=== PATIENT | female | born 1940 | race Hispanic/Latino ===

== ENCOUNTER → 2023-04-17 | Outpatient (CLI) | payer MEDICARE | END | disposition home or self-care (01) | LOC: SHCH 10:22 | PROVIDERS: ATTEND Internal Medicine Cardiovascular Disease | DX: I08.2 Rheumatic disorders of both aortic and tricuspid valves (principal); I10 Essential (primary) hypertension; I25.10 Atherosclerotic heart disease of native coronary artery without angina pectoris | CPT/HCPCS: 93306 ==

== ENCOUNTER → 2023-10-30 | Outpatient (CLI) | payer MEDICARE ==
[2023-10-30 16:17] LABS: BASOPHILS # (AUTO) 0.08 K/uL (0.00-0.20); BASOPHILS % (AUTO) 1.3 % (0.0-5.0); EOSINOPHILS # (AUTO) 0.48 K/uL (0.00-0.70); EOSINOPHILS % (AUTO) 7.9 % (0.0-8.0); HEMATOCRIT 44.7 % (36-48); IMMATURE GRANULOCYTE ABSOLUTE 0.02 K/uL (0-1); LYMPHOCYTES # (AUTO) 1.3 K/uL (1.0-4.8); LYMPHOCYTES % (AUTO) 21.3 % (21.0-51.0); MEAN CORPUSCULAR HEMOGLOBIN 27.4 pg (27.0-33.0); MEAN CORPUSCULAR HGB CONC 30.2 g/dL (32.0-36.0); MEAN CORPUSCULAR VOLUME 90.7 fL (79-99); MONOCYTES # (AUTO) 0.6 K/uL (0.1-1.0); MONOCYTES % (AUTO) 9.2 % (3.0-13.0); NEUTROPHILS # (AUTO) 3.6 K/uL (1.8-7.7); PLATELET COUNT (AUTO) 164 K/uL (130-400); RED BLOOD CELL COUNT(AUTO) 4.93 MIL/uL (4.00-5.50); RED CELL DISTRIBUTION WIDTH 17.8 % (11.0-15.5); WHITE BLOOD COUNT (AUTO) 6.1 K/uL (4.8-10.8)
[2023-10-30 16:37] LABS: B-TYPE NATRIURETIC PEPTIDE 764 pg/mL (0-100)
[2023-10-30 16:44] LABS: ALBUMIN 3.8 g/dL (3.5-5.0); BILIRUBIN,TOTAL 0.6 mg/dL (0.2-1.0); CREATININE 1.1 mg/dL (0.5-1.0); MAGNESIUM 1.6 mg/dL (1.80-2.40); POTASSIUM 4.1 mmol/L (3.5-5.1); TOTAL PROTEIN, SERUM 7.1 g/dL (6.0-8.3)
== END | disposition home or self-care (01) ==
LOC: LAB 11:30
PROVIDERS: ATTEND Physician Assistant
DX: I10 Essential (primary) hypertension (principal); E78.5 Hyperlipidemia, unspecified
CPT/HCPCS: 36415; 80053; 83735; 83880; 85025

== ENCOUNTER 2024-02-12 06:44 | Day surgery (SDC) | payer MEDICARE ==
[2024-02-07 15:04] VITALS: BP 126/74; PULSE 85; RESP 18; TEMP 98.2
[2024-02-07 15:11] LABS: BASOPHILS # (AUTO) 0.09 K/uL (0.00-0.20); BASOPHILS % (AUTO) 1.7 % (0.0-5.0); EOSINOPHILS % (AUTO) 3.8 % (0.0-8.0); HEMATOCRIT 39.3 % (36-48); IMMATURE GRANULOCYTE ABSOLUTE 0.02 K/uL (0-1); LYMPHOCYTES % (AUTO) 18.4 % (21.0-51.0); MEAN CORPUSCULAR HEMOGLOBIN 26.4 pg (27.0-33.0); MEAN CORPUSCULAR HGB CONC 30.5 g/dL (32.0-36.0); MEAN CORPUSCULAR VOLUME 86.4 fL (79-99); MONOCYTES # (AUTO) 0.6 K/uL (0.1-1.0); MONOCYTES % (AUTO) 11.9 % (3.0-13.0); NEUTROPHILS # (AUTO) 3.3 K/uL (1.8-7.7); NEUTROPHILS % (AUTO) 63.8 % (40.0-77.0); PLATELET COUNT (AUTO) 210 K/uL (130-400); RED BLOOD CELL COUNT(AUTO) 4.55 MIL/uL (4.00-5.50); RED CELL DISTRIBUTION WIDTH 16.3 % (11.0-15.5); WHITE BLOOD COUNT (AUTO) 5.2 K/uL (4.8-10.8)
[2024-02-07 15:21] LABS: POTASSIUM 4.5 mmol/L (3.5-5.1)
[2024-02-12] VITALS (20 sets, daily range): BP systolic 88–148; BP diastolic 47–97; PULSE 54–90; RESP 18; TEMP 97.7–98
[~2024-02-12] VITALS: Ht 162.6 cm; Wt 63.5 kg
[~2024-02-12 06:44] MED LIST: ACET-2521 PO; AEC81 PO; ATOR40TA71 PO; CETI10CA5 PO; CHOL-34 PO; DAPA10TA PO; DILT120C12 PO; DOCU100C33 PO; DULO20CA18 PO; FURO20TA6 PO; HYDR200T75 PO; ICOS1CAP PO; MAGN500T11 PO; MEMA5TAB16 PO; METO25TA3 PO; ONDA-243 PO; PROP225C24 PO; RIVA20TA PO; TRAM-543 PO
[2024-02-12] MEDS: 0.9%NACL 1000ML 1,000 ML IV SCH (08:53)
[2024-02-12] MEDS ORDERED: proPOFol 10 MG/ML 20ML VIAL IV ONE (11:39)
== END 2024-02-12 13:10 | disposition home or self-care (01) ==
LOC: DAH 06:44
PROVIDERS: ATTEND Internal Medicine Cardiovascular Disease
DX: I48.19 Other persistent atrial fibrillation (principal); I25.10 Atherosclerotic heart disease of native coronary artery without angina pectoris; E78.5 Hyperlipidemia, unspecified; E11.40 Type 2 diabetes mellitus with diabetic neuropathy, unspecified; J44.9 Chronic obstructive pulmonary disease, unspecified; I11.0 Hypertensive heart disease with heart failure; I50.32 Chronic diastolic (congestive) heart failure; M85.80 Other specified disorders of bone density and structure, unspecified site; M35.00 Sjogren syndrome, unspecified; F32.A Depression, unspecified; Z79.01 Long term (current) use of anticoagulants; Z79.82 Long term (current) use of aspirin; Z79.899 Other long term (current) drug therapy
CPT/HCPCS: 80048; 85025; 36415; 92960; 93005 ×2; J7030; J2704; A4215; A4222; A4221; A4663; A4216; A4606; A4223 ×3; J3490

== ENCOUNTER 2024-04-16 13:51 | Inpatient (IN) | payer MEDICARE ==
[~2024-04-16] VITALS: Ht 162.6 cm; Wt 57.2 kg
[2024-04-16] MEDS ORDERED: acetaMINOPHEN 325 MG TAB PO PRN (14:30)
[2024-04-16] MEDS ORDERED: DEXTROSE 50%-WATER 50 ML DISP.SYRIN IV PRN (14:30)
[2024-04-16] MEDS ORDERED: dilTIAZem 125MG+100 ML NS 125 ML IV PRN (14:30)
[2024-04-16] MEDS ORDERED: acetaMINOPHEN 650 MG SUPPOSITORY RC PRN (14:30)
[2024-04-16] MEDS ORDERED: GLUCAGON 1MG KIT 1 MG ML IM PRN (14:30)
[2024-04-16] MEDS ORDERED: PoTASSium chloRIDE 10MEQ/100ML 100 ML IV PRN ×2 (14:30)
[2024-04-16 14:38] LABS: BASOPHILS # (AUTO) 0.08 K/uL (0.00-0.20); BASOPHILS % (AUTO) 1.1 % (0.0-5.0); EOSINOPHILS # (AUTO) 0.16 K/uL (0.00-0.70); EOSINOPHILS % (AUTO) 2.2 % (0.0-8.0); HEMATOCRIT 33.6 % (36-48); IMMATURE GRANULOCYTE ABSOLUTE 0.03 K/uL (0-1); LYMPHOCYTES # (AUTO) 0.9 K/uL (1.0-4.8); LYMPHOCYTES % (AUTO) 12.4 % (21.0-51.0); MEAN CORPUSCULAR HEMOGLOBIN 22.2 pg (27.0-33.0); MEAN CORPUSCULAR HGB CONC 29.2 g/dL (32.0-36.0); MEAN CORPUSCULAR VOLUME 76.2 fL (79-99); MONOCYTES # (AUTO) 0.6 K/uL (0.1-1.0); MONOCYTES % (AUTO) 8.6 % (3.0-13.0); NEUTROPHILS # (AUTO) 5.4 K/uL (1.8-7.7); NEUTROPHILS % (AUTO) 75.3 % (40.0-77.0); PLATELET COUNT (AUTO) 188 K/uL (130-400); RED BLOOD CELL COUNT(AUTO) 4.41 MIL/uL (4.00-5.50); RED CELL DISTRIBUTION WIDTH 17.7 % (11.0-15.5); WHITE BLOOD COUNT (AUTO) 7.2 K/uL (4.8-10.8)
--- NOTE | 2024-04-16 14:43 | HP ---
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 History of atrial fibrillation on Chronic anticoagulation with Xarelto Acute hypoxic respiratory failure, POA Acute on chronic diastolic heart failure with the EF of 60% in 2018 History of pulmonary hypertension PAD Hyperglycemia in the presence of type 2 diabetes mellitus Hypomagnesemia Chronic microcytic hypochromic anemia, POA Thoracic aorta atherosclerosis Renal artery atherosclerosis 50% ostium lesion right renal per abdominal aortogram Raynaud's phenomenon Sjogren's syndrome HPI: This is a 89-year-old chronically ill female with a history of hypertension, type 2 diabetes mellitus, CAD status post PTCA stenting, diastolic heart failure, pulmonary hypertension, PAD, severe mitral stenosis, chronic atrial fibrillation on anticoagulation with prior history of cardioversion on 02/12/24 who was sent in via EMS from Cardiology office for concerns of severe dilated mitral valve. Per report patient was in AFib with RVR at the cardiology office with heart rate 100-150, hemodynamically stable. Patient directly admitted but due to no rooms on the PCCU floor patient arrived at the emergency department. She was received in the emergency department, EKG showed AFib with rate of 102. On heart rate monitor 68. Patient is hemodynamically stable. She reports shortness of breath with minimal exertion. Denies any chest pain palpitations nausea vomiting at this time. She does report fatigue and generalized body weakness. On laboratory WBCs are normal and normal neutrophils. H&H is 9.8/33.6 MCV 70 6.2 MCHC 29.2, with a platelet count of [id number]. Patient's consistent with microcytic hypochromic anemia. Chemistries sodium is normal 137, potassium is four BUN 24 glucose is 113 mg/dL lactic is normal at 2.1 with a total calcium of 8.4 magnesium is 1.50 covered per protocol. Liver enzymes are normal CK is normal at 76 sensitive troponin was 44.6 total protein 6.2 albumin 3.5 TSH is normal at 1.54 pending a BNP, pending COVID and influenza test. 2D echo ordered and pending. We will admit to PCCU and start Cardizem drip if patient converts back to AFib with RVR. PAST MEDICAL HX: Hypertension Diabetes mellitus type 2 Polyneuropathy CAD status post PTCA AFib with RVR on chronic anticoagulation Diastolic heart failure EF of 60% in 2018 Pulmonary hypertension PAD Thoracic aorta arteriosclerosis Right renal artery arteriosclerosis Raynaud's phenomena Sjogren's syndrome Dermatitis Internal and external hemorrhoids Microcytic anemia Depression Macular degeneration Open angle glaucoma Senile cataract Osteopenia Sjogren syndrome Chronic back pain Erosive esophagitis Hiatal hernia PAST SURGICAL HX: CAD status post PTCA Esophagogastroduodenoscopy Colonoscopy Diabetic retinal eye exam PTCA Abdominal aortogram Appendectomy Tonsillectomy SOCIAL HISTORY: No tobacco, ETOH, or illicit drug use Coded Allergies: No Known Drug Allergies (Unverified Allergy, Unknown, 02/07/24) REVIEW OF SYSTEMS: Const: No fever, or weight changes does report fatigue Eyes:[ no recent vision problems] ENT: [No congestion, ear pain, or sore throat] C/V: No chest pain yes for palpitations yes for edema Resp: [No cough, congestion, wheezing , yes for Shortness of breath] GI: [No abdominal pain, nausea, vomiting, constipation, or diarrhea] : [No incontinence of or dyuria] M/S: [No joint or pain swelling] Skin: [No rash] Neuro: [no headache, focal numbness, or weakness, dizziness or seizures] Psych: [no depression or anxiety] Heme: [no abnormal bruising or bleeding] Lymph: [no swollen glands] PHYSICAL EXAM: GENERAL: alert, weak, awake oriented x 3 HEENT: EOMI, Sclera non icteric, moist mucosa NECK: Supple, no JVD, trachea midline LUNGS: Diminished breath sounds bilaterally. No wheezes HEART: Irregular rate and rhythm. Normal S1 and S2, apical murmur, ABD: Abdomen soft, nontender. Bowel sounds present EXT: No clubbing + 1 pedal edema NEURO: Alert and oriented to person, follows commands Vital Signs (last 8hr) Date Time Temp Pulse Resp B/P (MAP) Pulse Ox O2 Delivery O2 Flow Rate FiO2 04/16/24 13:54 98.8 107 19 130/73 95 Nasal Cannula 2.0 LABS: Hematology Labs: Test 04/16/24 14:24 Range/Units White Blood Count 7.2 4.8-10.8 K/uL Red Blood Count 4.41 4.00-5.50 MIL/uL Hemoglobin 9.8 L 12.0-16.0 g/dL Hematocrit 33.6 L 36-48 % Mean Corpuscular Volume 76.2 L 79-99 fL Mean Corpuscular Hemoglobin 22.2 L 27.0-33.0 pg Mean Corpuscular Hemoglobin Concent 29.2 L 32.0-36.0 g/dL Red Cell Distribution Width 17.7 H 11.0-15.5 % Platelet Count 188 130-400 K/uL Mean Platelet Volume 10.0 7.5-10.5 fL Immature Granulocyte % (Auto) 0.4 0-1 % Neutrophils (%) (Auto) 75.3 40.0-77.0 % Lymphocytes (%) (Auto) 12.4 L 21.0-51.0 % Monocytes (%) (Auto) 8.6 3.0-13.0 % Eosinophils (%) (Auto) 2.2 0.0-8.0 % Basophils (%) (Auto) 1.1 0.0-5.0 % Neutrophils # (Auto) 5.4 1.8-7.7 K/uL Lymphocytes # (Auto) 0.9 L 1.0-4.8 K/uL Monocytes # (Auto) 0.6 0.1-1.0 K/uL Eosinophils # (Auto) 0.16 0.00-0.70 K/uL Basophils # (Auto) 0.08 0.00-0.20 K/uL Absolute Immature Granulocyte (auto 0.03 0-1 K/uL Nucleated Red Blood Cells 0.0 0.0-0.19 % Chemistry Labs: Test 04/16/24 14:24 Range/Units Lactic Acid Level 2.1 0.8-2.5 mmol/L DIAGNOSTICS / RADIOLOGY RESULTS: [ ] PLAN Monitor respiratory status closely Maintain O2 sats above 92% Continuous telemetry monitoring CBC, cardiac troponin, electrolytes, BUN and creatinine labs in a.m. Chest x-ray in the morning Strict I&O Hydralazine p.r.n. for hypertension Diurese with Lasix 2D echo Fluid restriction 1.5-L Beta bird ANABEL/ARB if kidney per minutes Aspirin Statin Sodium restriction Daily weight Avoid blood transfusions unless absolutely necessary with a hemoglobin less than 7 GI PPX Protonix Full-dose Lovenox Cardizem drip if patient converts to AFib with RVR NEURO: Minimize central acting medications as possible. Maintain fall precautions, adequate lighting during the day PULMONARY: Supplemental 02 as needed. Maintain aspiration precautions at all times Maintain O2 sats above 92% CARDIOVASCULAR: Follow hemodynamics. Vital signs per facility protocol Telemetry monitoring GI & NUTRITION: Continue with nutritional support. Continue stool softeners and laxatives as needed. Heart healthy KIDNEYS & ELECTROLYTES: Strict monitoring of intake, output and overall fluid balance. Avoid nephrotoxic medications to the extent possible. Medications to be dosed according to renal function. Monitor electrolytes and replace as needed ENDOCRINE: Maintain blood glucose between 100-180 at all times. Hypoglycemia protocol in place INFECTIOUS DISEASE: Trend temperature, WBC and procalcitonin level Follow cultures, deescalate antibiotics as soon as possible. Panculture if new onset fever ONCOLOGY/HEMATOLOGY/COAGULATION: Monitor for s/s of bleeding Monitor hemoglobin, coagulation studies as needed SKIN: Pressure ulcer prevention per facility protocol Specialty mattress ORTHO/REHAB: Continue PT/OT Prophylaxis: Continue GI and DVT prophylaxis Code Status: Full Resuscitation Disposition: TBD Other: Total patient care time exceeds 35 minutes excluding all procedures. TALI VILLARREAL [facility] Apr 16, 2024 14:43
[2024-04-16 15:06] LABS: ALBUMIN 3.5 g/dL (3.5-5.0); BILIRUBIN,TOTAL 0.7 mg/dL (0.2-1.0); TOTAL PROTEIN, SERUM 6.2 g/dL (6.0-8.3)
[2024-04-16 15:18] LABS: MAGNESIUM 1.5 mg/dL (1.80-2.40); PHOSPHORUS 3.9 mg/dL (2.5-4.9); THYROID STIMULATING HORMONE 1.54 uIU/mL (0.36-3.74)
--- NOTE | 2024-04-16 15:26 | EKG ---
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
[2024-04-16 15:45] LABS: B-TYPE NATRIURETIC PEPTIDE 1200 pg/mL (0-100)
[2024-04-16] MEDS ORDERED: hydrALAZine 20MG/ML VIAL IV PRN (16:00)
[2024-04-16 16:12] LABS: COVID19 (SARS ANTIGEN RAPID) PRESUMPTIVE NEGATIVE (NEGATIVE)
[2024-04-16 16:13] LABS: INFLUENZA TYPE A Negative For Type A (NEGATIVE); INFLUENZA TYPE B Negative For Type B (NEGATIVE)
--- NOTE | 2024-04-16 16:29 | HMCIMG ---
CHEST PA, LATERAL AND LORDOTIC HISTORY: Hypoxia COMPARISON: None FINDINGS: A frontal projection of the chest was obtained. There are bilateral pulmonary infiltrates suggestive of pulmonary vascular congestion with possible superimposed pneumonitis. The heart is borderline enlarged. Port inspiratory effort is seen. No evidence of aortic calcification is seen. IMPRESSION: 1. Bilateral pulmonary infiltrates are seen suggestive of pulmonary vascular congestion with possible superimposed pneumonitis.
[2024-04-16] MEDS: furoSEMIDE 20MG VIAL IV SCH (16:58)
[2024-04-16] MEDS: atorVAStatin 40 MG TABLET PO SCH (20:41)
[2024-04-16] MEDS: ENOXAPARIN SODIUM 60 MG/0.6 ML SQ SCH (20:43)
[2024-04-17] VITALS (10 sets, daily range): BP systolic 105–138; BP diastolic 60–82; PULSE 74–95; RESP 16–20; TEMP 88–98.3; O2SAT 94–98
[2024-04-17] MEDS: MAGNESIUM 2GM PREMIX 50ML 50 ML IV PRN (03:39)
[2024-04-17] MEDS ORDERED: HYDR200T75 PO (04:12)
[2024-04-17] MEDS ORDERED: PANT40TA54 PO (04:12)
[2024-04-17 05:10] LABS: BASOPHILS # (AUTO) 0.09 K/uL (0.00-0.20); BASOPHILS % (AUTO) 1.6 % (0.0-5.0); EOSINOPHILS # (AUTO) 0.23 K/uL (0.00-0.70); HEMATOCRIT 33.1 % (36-48); IMMATURE GRANULOCYTE ABSOLUTE 0.02 K/uL (0-1); LYMPHOCYTES % (AUTO) 16.7 % (21.0-51.0); MEAN CORPUSCULAR HEMOGLOBIN 21.7 pg (27.0-33.0); MEAN CORPUSCULAR HGB CONC 29.6 g/dL (32.0-36.0); MEAN CORPUSCULAR VOLUME 73.4 fL (79-99); MONOCYTES # (AUTO) 0.7 K/uL (0.1-1.0); MONOCYTES % (AUTO) 12.1 % (3.0-13.0); NEUTROPHILS # (AUTO) 3.7 K/uL (1.8-7.7); NEUTROPHILS % (AUTO) 65.2 % (40.0-77.0); PLATELET COUNT (AUTO) 201 K/uL (130-400); RED BLOOD CELL COUNT(AUTO) 4.51 MIL/uL (4.00-5.50); RED CELL DISTRIBUTION WIDTH 17.6 % (11.0-15.5); WHITE BLOOD COUNT (AUTO) 5.7 K/uL (4.8-10.8)
[2024-04-17 05:15] LABS: ALBUMIN 3.4 g/dL (3.5-5.0); BILIRUBIN,TOTAL 0.9 mg/dL (0.2-1.0); POTASSIUM 3.4 mmol/L (3.5-5.1); TOTAL PROTEIN, SERUM 6.2 g/dL (6.0-8.3)
[2024-04-17] MEDS: PoTASSium chl 10% ELIXIR 20MEQ 20 MEQ/15 ML UDCUP PO PRN (06:39)
--- NOTE | 2024-04-17 07:51 | CONS ---
[facility] CARDIOLOGY CONSULTATION NOTE Date Patient Seen: Apr 17, 2024 Time of Visit: 07:03 Requesting Physician: Referred by BIS, sent from [facility] for [facility] to admit Reason for Consultation: Acute on chronic diastolic chf exacerbation, Afib with RVR in office. History of Present Illness: Pt is an 83 year old female with a past medical history of Sjogren's disease, CAD with prior stenting of the LAD in 2017 (OM was 30% and Circ 50%, with EF of 60%, Afib with chronic anticoagulation on Xarelto, prior failed Cardioversion, Mitral stenosis, Pulmonary HTN, PAD with prior atherectomy/angioplasty in 2013 with reocclusion bilaterally per doppler 2023, Renal Artery atherosclerosis, Depression, Glaucoma, Hiatal hernia, and microcytic anemia, and advanced age with debilitation. Pt was recently successfully cardioverted from afib with RVR to NSR in Feb [address] Busby but she has slipped back into Afib, found to be in RVR yesterday and was SOB during office visit, HR up to the 150's. She was noted to have recent echo done in December - Report at the office- with EF of 70% but severely compromised left ventricular filling, mitral valve stenosis and severely dilated left atrium. Pt has pulmonary HTN - multifactorial given her valve disease, may have an autoimmune component as well. We are pending a repeat of her 2decho here eval for changes in the interim. Dr. Drummond pending to follow up with the patient, as he had also wanted to admit her on Apr 10 for medication trial but she had refused at that time. Yesterday, her decompensation encouraged her to agree to admission. Pt was sent over via ambulance for direct admission. Her BP is stable, oxygenation was 94% on room air. We requested a cardizem gtt but but the time she arrived, her HR was better controlled in the low 100's. Pt has been diuresed overnight and is feeling less sob. Oxygenation on 2lpm is 98%. Pt has mildly improved CXR today, improved aeration on auscultation. Past Medical History: HTN HLD CAD s/p remote stenting PAD s/p prior intervention, now with reocclusion Sjogren's Disease Afib on chronic anticoagulation with Xarelto - prior cardioversion attempt with reconversion to Afib Anemia, microcytic Past Surgical History: EGD PTCA with stenting of LAD Angioplasty of peripheral stenosis Colonoscopy Appendectomy Tonsillectomy Social History: Habits: [Never] smoker. [Denies] alcohol consumption. [Denies] illicit drug use Home Meds: Asa 81 mg po daily Atorvastatin 40mg po at hs Xarelto 20mg po daily Vascepa 1gm po bid Farxiga 10mg po daily Hydroxycholoroquin sulfate 200mg po bid Furosemide 20mg po daily Metoprolol ER 25 mg po daily Diltiazem ER 120mg po daily Protonix 40mg po daily Review of Systems: CONST: [No fever,+ fatigue, + weight changes.] EYES: [No recent vision problems.] ENT: [No congestion, ear pain, or sore throat.] C/V: [No chest pain,+ palpitations, +2edema.] RESP: [+cough, congestion, wheezing, + shortness of breath.] GI: [No abdominal pain, nausea, vomiting, constipation, or diarrhea.] : [No incontinence or dysuria.] SKIN: [No rash.] NEURO: [No headache, focal numbness or weakness, dizziness, or seizures.] PSYCH: [No depression or anxiety.] HEME: [No abnormal bruising or bleeding.] LYMPH: [No swollen glands.] Physical Examination: GENERAL: [No acute distress.] HEAD: [Normal with no signs of head trauma.] EYES: [PERRLA, EOMI, conjunctiva and sclera normal.] ENT: [Hearing grossly intact, normal oropharynx.] NECK: [Supple without JVD. There is no tenderness, lymphadenopathy, or masses. No thyromegaly. Normal carotid upstrokes without bruits.] LUNGS: [Clear breath sounds bilaterally. There are right basilar rales one third of the way up the chest. No wheezes, or rhonchi.] HEART: [Normal rate and rhythm. Normal S1 and S2 without mumurs, gallop or rub.] VASC: [Peripheral pulses +2 bilaterally.] ABD: [Bowel sounds normal, soft, nontender, no masses, no organomegaly. No audible bruits.] : [Not examined] LYMPH: [No lymphadenopathy noted.] EXT: [No clubbing, cyanosis or edema.] SKIN: [No rashes or lesions noted.] NEURO: [Awake, alert, and oriented x3. No focal sensory or strength deficits noted.] Vital Signs (last 8hr) Date Time Temp Pulse Resp B/P (MAP) Pulse Ox O2 Delivery O2 Flow Rate FiO2 04/17/24 04:00 88.0 88 18 132/82 95 Nasal Cannula 4.0 04/17/24 02:35 98 Nasal Cannula* 4 36 04/17/24 02:00 98.1 85 20 138/74 94 Nasal Cannula 4.0 Laboratory: [ ] Hematology Labs: Test 04/17/24 04:35 04/16/24 14:24 Range/Units White Blood Count 5.7 4.8-10.8 K/uL Red Blood Count 4.51 4.00-5.50 MIL/uL Hemoglobin 9.8 L 12.0-16.0 g/dL Hematocrit 33.1 L 36-48 % Mean Corpuscular Volume 73.4 L 79-99 fL Mean Corpuscular Hemoglobin 21.7 L 27.0-33.0 pg Mean Corpuscular Hemoglobin Concent 29.6 L 32.0-36.0 g/dL Red Cell Distribution Width 17.6 H 11.0-15.5 % Platelet Count 201 130-400 K/uL Mean Platelet Volume 10.7 H 7.5-10.5 fL Immature Granulocyte % (Auto) 0.4 0-1 % Neutrophils (%) (Auto) 65.2 40.0-77.0 % Lymphocytes (%) (Auto) 16.7 L 21.0-51.0 % Monocytes (%) (Auto) 12.1 3.0-13.0 % Eosinophils (%) (Auto) 4.0 0.0-8.0 % Basophils (%) (Auto) 1.6 0.0-5.0 % Neutrophils # (Auto) 3.7 1.8-7.7 K/uL Lymphocytes # (Auto) 1.0 1.0-4.8 K/uL Monocytes # (Auto) 0.7 0.1-1.0 K/uL Eosinophils # (Auto) 0.23 0.00-0.70 K/uL Basophils # (Auto) 0.09 0.00-0.20 K/uL Absolute Immature Granulocyte (auto 0.02 0-1 K/uL Nucleated Red Blood Cells 0.0 0.0-0.19 % Red Blood Cell Morphology See comments Chemistry Labs: Test 04/17/24 04:35 04/17/24 01:24 04/16/24 20:32 04/16/24 14:24 Range/Units Sodium Level 137 136-145 mmol/L Potassium Level 3.4 L 3.5-5.1 mmol/L Chloride Level 100 L 101-111 mmol/L Carbon Dioxide Level 28 21-32 mmol/L Blood Urea Nitrogen 21 H 7-18 mg/dL Creatinine 1.0 0.5-1.0 mg/dL Glomerular Filtration Rate Calc 56 >90 mL/min Random Glucose 85 70-105 mg/dL Total Calcium 8.7 8.5-10.1 mg/dL Total Bilirubin 0.9 # 0.2-1.0 mg/dL Aspartate Amino Transf (AST/SGOT) 21 10-37 U/L Alanine Aminotransferase (ALT/SGPT) 27 12-78 U/L Alkaline Phosphatase 113 50-136 U/L Total Protein 6.2 6.0-8.3 g/dL Albumin 3.4 L 3.5-5.0 g/dL Total Creatine Kinase 53 21-232 U/L Troponin I High Sensitivity 41.5 4-50 ng/L Lactic Acid Level 1.1 0.8-2.5 mmol/L Phosphorus Level 3.9 2.5-4.9 mg/dL Magnesium Level 1.50 L 1.80-2.40 mg/dL B-Type Natriuretic Peptide 1200 H 0-100 pg/mL Thyroid Stimulating Hormone (TSH) 1.54 0.36-3.74 uIU/mL Diagnostics / Radiology: PATIENT: ОЛЕГ SALINAS MR#: [id number] : 1940 SEX: F AGE: 83 LOCATION: [facility] ORDER 25 STATUS: ADM IN REPORT#: [id number] SERVICE 24 REASON: hypoxia ORDERING PHYSICIAN: TALI VILLARREAL PROCEDURE: CXR3 LORDO - CHEST PA, LATERAL AND LORDOTIC CHEST PA, LATERAL AND LORDOTIC HISTORY: Hypoxia COMPARISON: None FINDINGS: A frontal projection of the chest was obtained. There are bilateral pulmonary infiltrates suggestive of pulmonary vascular congestion with possible superimposed pneumonitis. The heart is borderline enlarged. Port inspiratory effort is seen. No evidence of aortic calcification is seen. IMPRESSION: 1. Bilateral pulmonary infiltrates are seen suggestive of pulmonary vascular congestion with possible superimposed pneumonitis. 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 Her afib was out of control with rates in the 150's yesterday but seems improved today and pulmonary status improved after diuresis, pt looks more comfortable and will tolerate lying flat for further exams now. Concerns for ability to regulate the pt's rhythm persist given underlying structural abnormality suspected. Pt will have follow up echo to better evaluate the valve function, pulmonary pressures and we will request CT of the chest to eval for underlying coexisting pulmonary disease that may be contributing to the pt's overall decline in status. Plan: Consult with Dr. Drummond, notified by me 12 lead EKG to chart Last echo from office to chart for comparison Repeat 2decho this admission Rate control meds adjustements per Dr. Drummond CT chest without contrast, eval pulmonary parenchyma Continue with gentle diuresis lasix 20mg IV bid Cover electrolytes per protocol Repeat CBC, CMP, Mag in am CXR in am EMILI CABALLERO [facility] Apr 17, 2024 07:51
--- NOTE | 2024-04-17 08:46 | EKG ---
[facility] Test Date: 2024-04-17 Test Time: 08:42:02 Pat Name: ОЛЕГ SALINAS Department: 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
[2024-04-17] MEDS: dilTIAZem 120MG SR CAP PO SCH (09:07)
[2024-04-17] MEDS: PANTOPrazole 40 MG/VIAL IVP SCH (09:07)
[2024-04-17] MEDS: ASPIRIN 81 MG EC TAB PO SCH (09:07)
[2024-04-17] MEDS: metOPROLol sucCINATE 25 MG TAB.SR.24H PO SCH ×2 (09:07→21:32)
[2024-04-17] MEDS: ceTIRIzine HCL 5 MG TABLET PO SCH (09:07)
--- NOTE | 2024-04-17 11:27 | HMCIMG ---
CT CHEST W/O CONTRAST HISTORY: Shortness of breath COMPARISON: None TECHNIQUE: Multiple sequential axial images of the chest were obtained from the thoracic inlet through upper abdomen. Patient was not given contrast through intravenous route. FINDINGS: There are bilateral pleural effusions with compressive atelectasis. Mild interstitial fibrotic changes are seen. Coronary arterial calcifications are seen. There is no evidence of pneumothorax. There are normal size mediastinal and hilar lymph nodes. The heart is borderline enlarged. Degenerative changes of the thoracolumbar spine are present. There is no evidence of adrenal nodule. There is right renal atrophy with possible right renal pelvic stones. IMPRESSION: 1. Bilateral pleural effusions with compressive atelectasis. Mild interstitial fibrosis. CT was performed with one or more following dose reduction techniques: automated exposure control, adjustment of the mA and kv according to patient's size, or use of a iterative reconstruction technique.
--- NOTE | 2024-04-17 12:17 | HMCIMG ---
CHEST 1VW HISTORY: Shortness of breath COMPARISON: 04/16/2024 FINDINGS: A frontal projection of the chest was obtained. Bilateral pulmonary infiltrates are seen with right more than left. Mitral annulus calcifications are seen. The heart is borderline enlarged. Degenerative changes are seen. No evidence of aortic calcification is seen. IMPRESSION: 1. Bilateral pulmonary infiltrates.
--- NOTE | 2024-04-17 16:26 | CONS ---
[facility] CARDIAC ELECTROPHYSIOLOGY CONSULTATION NOTE Date Patient Seen: Apr 17, 2024 Time of Visit: 16:02 Requesting Physician: Dr Clark Reason for Consultation: Atrial fibrillation History of Present Illness: Pt is an 83 year old lady with CAD with PCI of the LAD in 2018 (OM was 30% and Circ 50%, with EF of 60%, Persistent atrial fibrillation with chronic anticoagulation on Xarelto, prior failed Cardioversion, Mitral stenosis, Pulmonary HTN, PAD who was admitted from clinic due to symptomaic AF with RVR. Patient was seen seen in EP clinic recently and team had discussed admission for sotalol initiation and cardioversion. She then declined admission because she did not want to spend various days in the hospital. I saw her in clinic on 04/10/2024 and discussed options with her. I offered cardioversion with other agents that wouldn't require admission (amiodarone or multaq) vs rate control strategy. She wished to think about it as she again was hoping not to be cardioverted. She then saw Dr Clark in clinic and noted HR up to 150s. Sincea dmission, she's been diuresed and HR has been 80-90s. She feels weak and has conversational dyspnea Past Medical History: HTN HLD CAD s/p remote stenting PAD s/p prior intervention, now with reocclusion Sjogren's Disease Afib on chronic anticoagulation with Xarelto - prior cardioversion attempt with reconversion to Afib Anemia, microcytic Past Surgical History: EGD PTCA with stenting of LAD Angioplasty of peripheral stenosis Colonoscopy Appendectomy Tonsillectomy Social History: Habits: [Never] smoker. [Denies] alcohol consumption. [Denies] illicit drug use Home Meds: Asa 81 mg po daily Atorvastatin 40mg po at hs Xarelto 20mg po daily Vascepa 1gm po bid Farxiga 10mg po daily Hydroxycholoroquin sulfate 200mg po bid Furosemide 20mg po daily Metoprolol ER 25 mg po daily Diltiazem ER 120mg po daily Protonix 40mg po daily Review of Systems: CONST: [No fever,+ fatigue, + weight changes.] EYES: [No recent vision problems.] ENT: [No congestion, ear pain, or sore throat.] C/V: [No chest pain,+ palpitations, edema.] RESP: [+cough, congestion, wheezing, + shortness of breath.] GI: [No abdominal pain, nausea, vomiting, constipation, or diarrhea.] : [No incontinence or dysuria.] SKIN: [No rash.] NEURO: [No headache, focal numbness or weakness, dizziness, or seizures.] PSYCH: [No depression or anxiety.] HEME: [No abnormal bruising or bleeding.] LYMPH: [No swollen glands.] Physical Examination: GENERAL: [No acute distress.] HEAD: [Normal with no signs of head trauma.] EYES: EOMl.] ENT: [Hearing grossly intact, normal oropharynx.] LUNGS: [Clear breath sounds bilaterally. ] HEART: [Normal rate. irregular rhythm.Systolic murmur. .] VASC: [Peripheral pulses +2 bilaterally.] ABD: [Bowel sounds normal, soft, nontender, no masses, no organomegaly. No audible bruits.] : [Not examined] EXT: [No clubbing, cyanosis or edema.] SKIN: [No rashes or lesions noted.] NEURO: [Awake, alert, and oriented x3. .] Vital Signs (last 8hr) Date Time Temp Pulse Resp B/P (MAP) Pulse Ox O2 Delivery O2 Flow Rate FiO2 04/17/24 12:00 97.9 95 19 113/69 100 Nasal Cannula 4.0 Laboratory: [ ] Hematology Labs: Test 04/17/24 04:35 04/16/24 14:24 Range/Units White Blood Count 5.7 4.8-10.8 K/uL Red Blood Count 4.51 4.00-5.50 MIL/uL Hemoglobin 9.8 L 12.0-16.0 g/dL Hematocrit 33.1 L 36-48 % Mean Corpuscular Volume 73.4 L 79-99 fL Mean Corpuscular Hemoglobin 21.7 L 27.0-33.0 pg Mean Corpuscular Hemoglobin Concent 29.6 L 32.0-36.0 g/dL Red Cell Distribution Width 17.6 H 11.0-15.5 % Platelet Count 201 130-400 K/uL Mean Platelet Volume 10.7 H 7.5-10.5 fL Immature Granulocyte % (Auto) 0.4 0-1 % Neutrophils (%) (Auto) 65.2 40.0-77.0 % Lymphocytes (%) (Auto) 16.7 L 21.0-51.0 % Monocytes (%) (Auto) 12.1 3.0-13.0 % Eosinophils (%) (Auto) 4.0 0.0-8.0 % Basophils (%) (Auto) 1.6 0.0-5.0 % Neutrophils # (Auto) 3.7 1.8-7.7 K/uL Lymphocytes # (Auto) 1.0 1.0-4.8 K/uL Monocytes # (Auto) 0.7 0.1-1.0 K/uL Eosinophils # (Auto) 0.23 0.00-0.70 K/uL Basophils # (Auto) 0.09 0.00-0.20 K/uL Absolute Immature Granulocyte (auto 0.02 0-1 K/uL Nucleated Red Blood Cells 0.0 0.0-0.19 % Red Blood Cell Morphology See comments Chemistry Labs: Test 04/17/24 04:35 04/17/24 01:24 04/16/24 20:32 04/16/24 14:24 Range/Units Sodium Level 137 136-145 mmol/L Potassium Level 3.4 L 3.5-5.1 mmol/L Chloride Level 100 L 101-111 mmol/L Carbon Dioxide Level 28 21-32 mmol/L Blood Urea Nitrogen 21 H 7-18 mg/dL Creatinine 1.0 0.5-1.0 mg/dL Glomerular Filtration Rate Calc 56 >90 mL/min Random Glucose 85 70-105 mg/dL Total Calcium 8.7 8.5-10.1 mg/dL Magnesium Level 1.40 L 1.6-2.6 mg/dL Total Bilirubin 0.9 # 0.2-1.0 mg/dL Aspartate Amino Transf (AST/SGOT) 21 10-37 U/L Alanine Aminotransferase (ALT/SGPT) 27 12-78 U/L Alkaline Phosphatase 113 50-136 U/L Total Protein 6.2 6.0-8.3 g/dL Albumin 3.4 L 3.5-5.0 g/dL Total Creatine Kinase 53 21-232 U/L Troponin I High Sensitivity 41.5 4-50 ng/L Lactic Acid Level 1.1 0.8-2.5 mmol/L Phosphorus Level 3.9 2.5-4.9 mg/dL B-Type Natriuretic Peptide 1200 H 0-100 pg/mL Thyroid Stimulating Hormone (TSH) 1.54 0.36-3.74 uIU/mL Diagnostics / Radiology: PATIENT: ОЛЕГ SALINAS MR#: [id number] : 1940 SEX: F AGE: 83 LOCATION: [facility] ORDER 25 STATUS: ADM IN REPORT#: [id number] SERVICE 24 REASON: hypoxia ORDERING PHYSICIAN: TALI VILLARREAL PROCEDURE: CXR3 LORDO - CHEST PA, LATERAL AND LORDOTIC CHEST PA, LATERAL AND LORDOTIC HISTORY: Hypoxia COMPARISON: None FINDINGS: A frontal projection of the chest was obtained. There are bilateral pulmonary infiltrates suggestive of pulmonary vascular congestion with possible superimposed pneumonitis. The heart is borderline enlarged. Port inspiratory effort is seen. No evidence of aortic calcification is seen. IMPRESSION: 1. Bilateral pulmonary infiltrates are seen suggestive of pulmonary vascular congestion with possible superimposed pneumonitis. DICTATED BY: GAYATRI BARROS MD DATE: 04/16/241624 ELECTRONICALLY SIGNED BY: GAYATRI BARROS MD DATE: 04/16/241628 Assessment: 1. Persistent atrial fibrillation with suboptimal ventricular control 2.Chronic anticoagulation with Xarelto 3. Acute diastolic CHF exacerbation 4. Mitral stenosis 5. Pulmonary Hypertension 6. 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 her LV is small/seemingly underfilled. Given mitral stenosis would benefit from lower HR. I do not think we will be successful at rhythm control with multaq if she agrees to cardioversion. Best chance would be amiodarone but I worry about initiating amiodarone given her suspected interstitial fibrosis. I discussed cardioversion attempt with her but she's again hesitant to pursue this. Over the weekend, we'll focus on tighter rate control. I suspect though, that the optimal strategy will be AVN ablation and pacemaker, but I did not discuss this with her yet because if she's scared of pursuing cardioversion, she may not be willing to pursue AVN ablation and pacemaker. I told her I would call her daughter and will get the phone number of her grand daughter who is a set up and lay out inspector in [place] to further discuss options with them. Continue AC ANANYA MASON MD Apr 17, 2024 16:26
--- NOTE | 2024-04-17 18:18 | HMCSR ---
APPROVED REPORT EXAM: Two-dimensional and M-mode echocardiogram with Doppler and color Doppler. Study Details: Hx: HTN, HLP, CAD, PAD INDICATION ICD: Acute heart failure assess mitral valve Aortic Valve AoV Vmax2.1 m/[place] GR19.0 mmHg JEFFERSON (VMAX)1.4 cm2Ao Mean GR8.0 mmHg Tricuspid Valve RAP (EST) 8 mmHgRVSP8.0 mmHg Left Ventricle Left ventricular cavity size is normal. Moderate concentric left ventricular hypertrophy. LVEF is >70 %. No left ventricle thrombus noted on this study. Indeterminate diastolic dysfunction. Right Ventricle The right ventricle is normal size. The right ventricular systolic function is normal. Atria The left atrium is severely dilated. The right atrium is moderately to severely dilated. Aortic Valve The aortic valve is moderately to severely calcified. Aortic valve is trileaflet. Right coronary cusp leaflet has decreased excursion. No aortic regurgitation is present. There is mild aortic valvular s tenosis. Mitral Valve Calcified chordal apparatus. Severe mitral annular calcification. The mitral leaflets are thickened w ith restricted motion. There is mild mitral valve regurgitation noted. There is mild to moderate mitr al valve stenosis. Tricuspid Valve The tricuspid valve leaflets open well. Tricuspid valve leaflets appear prolapsed. There is trace of tricuspid valve regurgitation noted. Pulmonic Valve The pulmonary valve is normal in structure and function. There is no pulmonic valvular regurgitation. Great Vessels The aortic root is normal in size. IVC is normal in size and collapses <50% with inspiration. Pericardium No pericardial effusion. Other Information Quality : Technically difficult study due to body habitus. Conclusion Moderate concentric left ventricular hypertrophy. LVEF is >70%. The aortic valve is moderately to severely calcified. Aortic valve is trileaflet. Right coronary cusp leaflet has decreased excursion. No aortic regurgitation is present. There is mild aortic valvular stenosis. Calcified chordal apparatus. Severe mitral annular calcification. The mitral leaflets are thickened with restricted motion. There is mild mitral valve regurgitation noted. There is mild to moderate mitral valve stenosis.
--- NOTE | 2024-04-17 21:24 | PN ---
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 History of atrial fibrillation on Chronic anticoagulation with Xarelto Acute hypoxic respiratory failure, POA Acute on chronic diastolic heart failure with the EF of 60% in 2018 History of pulmonary hypertension PAD Hyperglycemia in the presence of type 2 diabetes mellitus Hypomagnesemia Chronic microcytic hypochromic anemia, POA Thoracic aorta atherosclerosis Renal artery atherosclerosis 50% ostium lesion right renal per abdominal aortogram Raynaud's phenomenon Sjogren's syndrome INTERVAL HISTORY: [ Patient on rate controlled sinus rhythm Denies chest pain, denies palpitations Still having some dyspnea on exertion No fevers, on cough, no congestion complains of fatigue and weakness Remains on O2] REVIEW OF SYSTEMS: Const: No fever, or weight changes does report fatigue Eyes:[ no recent vision problems] ENT: [No congestion, ear pain, or sore throat] C/V: No chest pain yes for palpitations yes for edema Resp: [No cough, congestion, wheezing , yes for Shortness of breath] GI: [No abdominal pain, nausea, vomiting, constipation, or diarrhea] : [No incontinence of or dyuria] M/S: [No joint or pain swelling] Skin: [No rash] Neuro: [no headache, focal numbness, or weakness, dizziness or seizures] Psych: [no depression or anxiety] Heme: [no abnormal bruising or bleeding] Lymph: [no swollen glands] PHYSICAL EXAM: GENERAL: alert, weak, awake oriented x 3 HEENT: EOMI, Sclera non icteric, moist mucosa NECK: Supple, no JVD, trachea midline LUNGS: Diminished breath sounds bilaterally. No wheezes HEART: Irregular rate and rhythm. Normal S1 and S2, apical murmur, ABD: Abdomen soft, nontender. Bowel sounds present EXT: No clubbing + 1 pedal edema NEURO: Alert and oriented to person, follows commands Vital Signs (last 8hr) Date Time Temp Pulse Resp B/P (MAP) Pulse Ox O2 Delivery O2 Flow Rate FiO2 04/17/24 19:53 98.1 84 17 105/60 96 Nasal Cannula 4.0 04/17/24 16:00 98.2 87 19 118/70 94 Nasal Cannula 4.0 LABS: Hematology Labs: Test 04/17/24 04:35 04/16/24 14:24 Range/Units White Blood Count 5.7 4.8-10.8 K/uL Red Blood Count 4.51 4.00-5.50 MIL/uL Hemoglobin 9.8 L 12.0-16.0 g/dL Hematocrit 33.1 L 36-48 % Mean Corpuscular Volume 73.4 L 79-99 fL Mean Corpuscular Hemoglobin 21.7 L 27.0-33.0 pg Mean Corpuscular Hemoglobin Concent 29.6 L 32.0-36.0 g/dL Red Cell Distribution Width 17.6 H 11.0-15.5 % Platelet Count 201 130-400 K/uL Mean Platelet Volume 10.7 H 7.5-10.5 fL Immature Granulocyte % (Auto) 0.4 0-1 % Neutrophils (%) (Auto) 65.2 40.0-77.0 % Lymphocytes (%) (Auto) 16.7 L 21.0-51.0 % Monocytes (%) (Auto) 12.1 3.0-13.0 % Eosinophils (%) (Auto) 4.0 0.0-8.0 % Basophils (%) (Auto) 1.6 0.0-5.0 % Neutrophils # (Auto) 3.7 1.8-7.7 K/uL Lymphocytes # (Auto) 1.0 1.0-4.8 K/uL Monocytes # (Auto) 0.7 0.1-1.0 K/uL Eosinophils # (Auto) 0.23 0.00-0.70 K/uL Basophils # (Auto) 0.09 0.00-0.20 K/uL Absolute Immature Granulocyte (auto 0.02 0-1 K/uL Nucleated Red Blood Cells 0.0 0.0-0.19 % Red Blood Cell Morphology See comments Chemistry Labs: Test 04/17/24 04:35 04/17/24 01:24 04/16/24 20:32 04/16/24 14:24 Range/Units Sodium Level 137 136-145 mmol/L Potassium Level 3.4 L 3.5-5.1 mmol/L Chloride Level 100 L 101-111 mmol/L Carbon Dioxide Level 28 21-32 mmol/L Blood Urea Nitrogen 21 H 7-18 mg/dL Creatinine 1.0 0.5-1.0 mg/dL Glomerular Filtration Rate Calc 56 >90 mL/min Random Glucose 85 70-105 mg/dL Total Calcium 8.7 8.5-10.1 mg/dL Magnesium Level 1.40 L 1.6-2.6 mg/dL Total Bilirubin 0.9 # 0.2-1.0 mg/dL Aspartate Amino Transf (AST/SGOT) 21 10-37 U/L Alanine Aminotransferase (ALT/SGPT) 27 12-78 U/L Alkaline Phosphatase 113 50-136 U/L Total Protein 6.2 6.0-8.3 g/dL Albumin 3.4 L 3.5-5.0 g/dL Total Creatine Kinase 53 21-232 U/L Troponin I High Sensitivity 41.5 4-50 ng/L Lactic Acid Level 1.1 0.8-2.5 mmol/L Phosphorus Level 3.9 2.5-4.9 mg/dL B-Type Natriuretic Peptide 1200 H 0-100 pg/mL Thyroid Stimulating Hormone (TSH) 1.54 0.36-3.74 uIU/mL DIAGNOSTICS / RADIOLOGY RESULTS: [ Imaging scans reviewed ] PLAN Telemetry monitoring continue B-bird Cardizem drip PRN cardiac diet NEURO: Minimize central acting medications as possible. Maintain fall precautions, adequate lighting during the day PULMONARY: Supplemental 02 as needed. Maintain aspiration precautions at all times Maintain O2 sats above 92% CARDIOVASCULAR: Follow hemodynamics. Vital signs per facility protocol Telemetry monitoring GI & NUTRITION: Continue with nutritional support. Continue stool softeners and laxatives as needed. Heart healthy KIDNEYS & ELECTROLYTES: Strict monitoring of intake, output and overall fluid balance. Avoid nephrotoxic medications to the extent possible. Medications to be dosed according to renal function. Monitor electrolytes and replace as needed ENDOCRINE: Maintain blood glucose between 100-180 at all times. Hypoglycemia protocol in place INFECTIOUS DISEASE: Trend temperature, WBC and procalcitonin level Follow cultures, deescalate antibiotics as soon as possible. Panculture if new onset fever ONCOLOGY/HEMATOLOGY/COAGULATION: Monitor for s/s of bleeding Monitor hemoglobin, coagulation studies as needed SKIN: Pressure ulcer prevention per facility protocol Specialty mattress ORTHO/REHAB: Continue PT/OT Prophylaxis: Continue GI and DVT prophylaxis Code Status: Full Resuscitation Disposition: TBD Other: Total patient care time exceeds 35 minutes excluding all procedures. ATTESTATION BY PHYSICIAN This note was scribed by Mic Teresa BSc and I attest to the accuracy of the clinical note Leonidas López MD I personally scribed for LEONIDAS LÓPEZ MD ([email or web address]) on 04/17/24 at 21:24. Electronically submitted by Mic Teresa ([email or web address]). LEONIDAS LÓPEZ MD Apr 17, 2024 21:24
[2024-04-18 03:31] VITALS: BP 118/69; PULSE 90; RESP 18; TEMP 98
[2024-04-18 05:03] LABS: BASOPHILS % (AUTO) 1.6 % (0.0-5.0); EOSINOPHILS # (AUTO) 0.21 K/uL (0.00-0.70); EOSINOPHILS % (AUTO) 3.4 % (0.0-8.0); HEMATOCRIT 36.8 % (36-48); IMMATURE GRANULOCYTE ABSOLUTE 0.03 K/uL (0-1); LYMPHOCYTES # (AUTO) 1.3 K/uL (1.0-4.8); LYMPHOCYTES % (AUTO) 20.6 % (21.0-51.0); MEAN CORPUSCULAR HEMOGLOBIN 21.9 pg (27.0-33.0); MEAN CORPUSCULAR HGB CONC 29.3 g/dL (32.0-36.0); MEAN CORPUSCULAR VOLUME 74.5 fL (79-99); MONOCYTES # (AUTO) 0.9 K/uL (0.1-1.0); MONOCYTES % (AUTO) 14.1 % (3.0-13.0); NEUTROPHILS # (AUTO) 3.7 K/uL (1.8-7.7); NEUTROPHILS % (AUTO) 59.8 % (40.0-77.0); PLATELET COUNT (AUTO) 199 K/uL (130-400); RED BLOOD CELL COUNT(AUTO) 4.94 MIL/uL (4.00-5.50); RED CELL DISTRIBUTION WIDTH 17.8 % (11.0-15.5); WHITE BLOOD COUNT (AUTO) 6.1 K/uL (4.8-10.8)
[2024-04-18 05:24] LABS: ALBUMIN 3.2 g/dL (3.5-5.0); BILIRUBIN,TOTAL 0.7 mg/dL (0.2-1.0); CREATININE 1.2 mg/dL (0.5-1.0); MAGNESIUM 2.2 mg/dL (1.80-2.40); POTASSIUM 3.5 mmol/L (3.5-5.1)
[2024-04-18 08:00] VITALS: BP 116/71; PULSE 91; RESP 16; TEMP 98.2
[2024-04-18 09:00] VITALS: O2SAT 97
--- NOTE | 2024-04-18 09:22 | HMCIMG ---
CHEST 1VW HISTORY: Infiltrates COMPARISON: 04/17/2024 FINDINGS: A frontal projection of the chest was obtained. Bilateral pulmonary infiltrates are seen improved from previous study. The heart is borderline enlarged. Degenerative changes are seen. Aortic calcifications are seen. IMPRESSION: 1. Bilateral pulmonary infiltrates improved from previous study.
--- NOTE | 2024-04-18 09:28 | PN ---
1. Persistent atrial fibrillation with suboptimal ventricular control 2.Chronic anticoagulation with Xarelto 3. Acute diastolic CHF exacerbation 4. Mitral stenosis 5. Pulmonary Hypertension 6. 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 Extremely frail patient speaks with a very soft almost inaudible voice. No JVD, no rales today, minimal air movement and shallow respiration noted. Prominent S1, normal S2, grade 2 apical mid systolic murmur, irregularly irregular rhythm. Atrial fibrillation persists and requires better rate control because of presence of mitral stenosis. I agree with Dr. Sommers that AV node modification and pacing may be required to stabilize this patient. I will increase rate control regimen today. Vitals/Labs Vital Signs Date Time Temp Pulse Resp B/P (MAP) Pulse Ox O2 Delivery O2 Flow Rate FiO2 04/18/24 08:00 98.2 91 16 116/71 97 Nasal Cannula 4.0 32 Laboratory Tests 04/18/24 04:18 Medications Current Medications Acetaminophen 650 mg Q6H PRN PO; Start 04/16/24 at 14:30; Stop 05/16/24 at 14:29 Acetaminophen 650 mg Q6H PRN RC; Start 04/16/24 at 14:30; Stop 05/16/24 at 14:29 Diltiazem HCl 125 ml @ 0 mls/hr AD PRN IV; Start 04/16/24 at 14:30; Stop 04/16/24 at 14:38; Status DC Enoxaparin Sodium 50 mg BID SQ Last administered on 04/18/24at 09:10; Start 04/16/24 at 21:00; Stop 05/16/24 at 20:59 Dextrose 50 ml AD PRN IV; Start 04/16/24 at 14:30; Stop 05/16/24 at 14:29 Glucagon 1 mg AD PRN IM; Start 04/16/24 at 14:30; Stop 05/16/24 at 14:29 Magnesium Sulfate 50 ml @ 0 mls/hr PROTOCOL PRN IV Last administered on 04/17/24at 12:38; Start 04/16/24 at 14:30; Stop 05/16/24 at 14:29 Potassium Chloride 100 ml @ 100 mls/hr AD PRN IV; Start 04/16/24 at 14:30; Stop 05/16/24 at 14:29 Potassium Chloride 10 meq AD PRN PO Last administered on 04/17/24at 12:39; Start 04/16/24 at 14:30; Stop 05/16/24 at 14:29 Potassium Chloride 10 meq AD PRN PO; Start 04/16/24 at 14:30; Stop 05/16/24 at 14:29 Potassium Chloride 100 ml @ 100 mls/hr AD PRN IV; Start 04/16/24 at 14:30; Stop 05/16/24 at 14:29 Aspirin 81 mg DAILY PO Last administered on 04/18/24at 08:57; Start 04/17/24 at 09:00; Stop 05/17/24 at 08:59 Atorvastatin Calcium 40 mg HS PO Last administered on 04/17/24at 21:32; Start 04/16/24 at 21:00; Stop 05/16/24 at 20:59 Docusate Sodium 100 mg BID PRN PO; Start 04/16/24 at 15:00; Stop 05/16/24 at 14:59 Metoprolol Succinate 25 mg DAILY PO Last administered on 04/17/24at 09:07; Start 04/17/24 at 09:00; Stop 04/17/24 at 16:28; Status DC Cetirizine HCl 10 mg DAILY PO Last administered on 04/18/24at 08:57; Start 04/17/24 at 09:00; Stop 05/17/24 at 08:59 Diltiazem HCl 120 mg DAILY PO Last administered on 04/18/24at 08:57; Start 04/17/24 at 09:00; Stop 05/17/24 at 08:59 Furosemide 20 mg Q12H IV Last administered on 04/18/24at 06:04; Start 04/16/24 at 15:00; Stop 05/16/24 at 14:59 Hydralazine HCl 10 mg Q4H PRN IV; Start 04/16/24 at 16:00; Stop 05/16/24 at 15:59 Pantoprazole Sodium 40 mg DAILY IVP Last administered on 04/18/24at 08:56; Start 04/17/24 at 09:00; Stop 05/17/24 at 08:59 Metoprolol Succinate 25 mg BID PO Last administered on 04/18/24at 08:57; Start 04/17/24 at 21:00; Stop 05/17/24 at 20:59 ALEXIS SANFORD MD Apr 18, 2024 09:28
--- NOTE | 2024-04-18 11:16 | PN ---
[facility] PROGRESS NOTE Date Patient Seen: Apr 18, 2024 Time of Visit: 11:06 Supervising Physician: [Dr. 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 Patient continues on supplemental oxygen with 4 L NC. Had 1500 mL of urine output on 04/17. Patient was admitted for treatment of AFib with RVR found at education consultant's office. When she arrived at the ED, she had a heart rate in the low 100s, she continues with antiarrhythmics including [id number] XL and diltiazem 120 mg daily. Also currently on Lovenox as there has been discussion of possible AVN and PM. Labs including CBC and BNP are relatively within normal limits, creatinine increased to 1.2. We will await further discussion by Cardiology and patient/family. No family at bedside. REVIEW OF SYSTEMS: Const: No fever, or weight changes does report fatigue Eyes:[ no recent vision problems] ENT: [No congestion, ear pain, or sore throat] C/V: No chest pain yes for palpitations yes for edema Resp: [No cough, congestion, wheezing , yes for Shortness of breath] GI: [No abdominal pain, nausea, vomiting, constipation, or diarrhea] : [No incontinence of or dyuria] M/S: [No joint or pain swelling] Skin: [No rash] Neuro: [no headache, focal numbness, or weakness, dizziness or seizures] Psych: [no depression or anxiety] Heme: [no abnormal bruising or bleeding] Lymph: [no swollen glands] PHYSICAL EXAM: GENERAL: alert, weak, awake oriented x 3 HEENT: EOMI, Sclera non icteric, moist mucosa NECK: Supple, no JVD, trachea midline LUNGS: Diminished breath sounds bilaterally. No wheezes HEART: Irregular rate and rhythm. Normal S1 and S2, apical murmur, ABD: Abdomen soft, nontender. Bowel sounds present EXT: No clubbing + 1 pedal edema NEURO: Alert and oriented to person, follows commands Vital Signs (last 8hr) Date Time Temp Pulse Resp B/P (MAP) Pulse Ox O2 Delivery O2 Flow Rate FiO2 04/18/24 09:00 97 Nasal Cannula* 4 36 04/18/24 08:00 98.2 91 16 116/71 97 Nasal Cannula 4.0 32 04/18/24 03:31 98.1 90 18 118/69 91 Nasal Cannula 4.0 LABS: Hematology Labs: Test 04/18/24 04:18 04/16/24 14:24 Range/Units White Blood Count 6.1 4.8-10.8 K/uL Red Blood Count 4.94 4.00-5.50 MIL/uL Hemoglobin 10.8 L 12.0-16.0 g/dL Hematocrit 36.8 36-48 % Mean Corpuscular Volume 74.5 L 79-99 fL Mean Corpuscular Hemoglobin 21.9 L 27.0-33.0 pg Mean Corpuscular Hemoglobin Concent 29.3 L 32.0-36.0 g/dL Red Cell Distribution Width 17.8 H 11.0-15.5 % Platelet Count 199 130-400 K/uL Mean Platelet Volume 10.3 7.5-10.5 fL Immature Granulocyte % (Auto) 0.5 0-1 % Neutrophils (%) (Auto) 59.8 40.0-77.0 % Lymphocytes (%) (Auto) 20.6 L 21.0-51.0 % Monocytes (%) (Auto) 14.1 H 3.0-13.0 % Eosinophils (%) (Auto) 3.4 0.0-8.0 % Basophils (%) (Auto) 1.6 0.0-5.0 % Neutrophils # (Auto) 3.7 1.8-7.7 K/uL Lymphocytes # (Auto) 1.3 1.0-4.8 K/uL Monocytes # (Auto) 0.9 0.1-1.0 K/uL Eosinophils # (Auto) 0.21 0.00-0.70 K/uL Basophils # (Auto) 0.10 0.00-0.20 K/uL Absolute Immature Granulocyte (auto 0.03 0-1 K/uL Nucleated Red Blood Cells 0.0 0.0-0.19 % Red Blood Cell Morphology See comments Chemistry Labs: Test 04/18/24 04:18 04/17/24 01:24 04/16/24 20:32 04/16/24 14:24 Range/Units Sodium Level 137 136-145 mmol/L Potassium Level 3.5 3.5-5.1 mmol/L Chloride Level 101 101-111 mmol/L Carbon Dioxide Level 28 21-32 mmol/L Blood Urea Nitrogen 26 H 7-18 mg/dL Creatinine 1.2 H 0.5-1.0 mg/dL Glomerular Filtration Rate Calc 45 >90 mL/min Random Glucose 106 H 70-105 mg/dL Total Calcium 8.2 L 8.5-10.1 mg/dL Magnesium Level 2.20 1.80-2.40 mg/dL Total Bilirubin 0.7 # 0.2-1.0 mg/dL Aspartate Amino Transf (AST/SGOT) 17 10-37 U/L Alanine Aminotransferase (ALT/SGPT) 21 # 12-78 U/L Alkaline Phosphatase 109 50-136 U/L Total Protein 6.0 6.0-8.3 g/dL Albumin 3.2 L 3.5-5.0 g/dL Total Creatine Kinase 53 21-232 U/L Troponin I High Sensitivity 41.5 4-50 ng/L Lactic Acid Level 1.1 0.8-2.5 mmol/L Phosphorus Level 3.9 2.5-4.9 mg/dL B-Type Natriuretic Peptide 1200 H 0-100 pg/mL Thyroid Stimulating Hormone (TSH) 1.54 0.36-3.74 uIU/mL DIAGNOSTICS / RADIOLOGY RESULTS: CHEST 1VW HISTORY: Infiltrates COMPARISON: 04/17/2024 FINDINGS: A frontal projection of the chest was obtained. Bilateral pulmonary infiltrates are seen improved from previous study. The heart is borderline enlarged. Degenerative changes are seen. Aortic calcifications are seen. IMPRESSION: 1. Bilateral pulmonary infiltrates improved from previous study. PLAN Telemetry monitoring continue B-bird Cardizem drip PRN Start PO lasix 40 mg cardiac diet NEURO: Minimize central acting medications as possible. Maintain fall precautions, adequate lighting during the day PULMONARY: Supplemental 02 as needed. Maintain aspiration precautions at all times Maintain O2 sats above 92% CARDIOVASCULAR: Follow hemodynamics. Vital signs per facility protocol Telemetry monitoring GI & NUTRITION: Continue with nutritional support. Continue stool softeners and laxatives as needed. Heart healthy KIDNEYS & ELECTROLYTES: Strict monitoring of intake, output and overall fluid balance. Avoid nephrotoxic medications to the extent possible. Medications to be dosed according to renal function. Monitor electrolytes and replace as needed ENDOCRINE: Maintain blood glucose between 100-180 at all times. Hypoglycemia protocol in place INFECTIOUS DISEASE: Trend temperature, WBC and procalcitonin level Follow cultures, deescalate antibiotics as soon as possible. Panculture if new onset fever ONCOLOGY/HEMATOLOGY/COAGULATION: Monitor for s/s of bleeding Monitor hemoglobin, coagulation studies as needed SKIN: Pressure ulcer prevention per facility protocol Specialty mattress ORTHO/REHAB: Continue PT/OT Prophylaxis: Continue GI and DVT prophylaxis Code Status: Full Resuscitation Disposition: TBD Other: Total patient care time exceeds 35 minutes excluding all procedures. ATTESTATION BY PHYSICIAN I attest that I reviewed and discussed the case with the Physician Security Compliance Specialist as well as agree with the Physician Security Compliance Specialist's findings, plans of care, and documentation above. Brennen Lopez MD, MARCUS A PA Apr 18, 2024 11:16
[2024-04-18 12:00] VITALS: BP 106/61; PULSE 88; RESP 16; TEMP 97.9
[2024-04-18 16:00] VITALS: BP 104/76; PULSE 82; RESP 15; TEMP 98.2
[2024-04-18] MEDS: metOPROLol sucCINATE 25 MG TAB.SR.24H PO SCH (17:01)
[2024-04-18] MEDS: PoTASSium chloRIDE 20MEQ ER 20 MEQ ERTAB PO PRN (17:27)
[2024-04-18 20:00] VITALS: BP 125/79; PULSE 85; RESP 19; TEMP 97.9; O2SAT 91
[2024-04-19] VITALS (8 sets, daily range): BP systolic 91–134; BP diastolic 52–77; PULSE 78–96; RESP 18–20; TEMP 97.8–98.4; O2SAT 96–100
[2024-04-19 04:23] LABS: ALBUMIN 3.2 g/dL (3.5-5.0); BILIRUBIN,TOTAL 0.6 mg/dL (0.2-1.0); CREATININE 1.1 mg/dL (0.5-1.0); POTASSIUM 3.8 mmol/L (3.5-5.1); TOTAL PROTEIN, SERUM 5.9 g/dL (6.0-8.3)
[2024-04-19] MEDS: metOPROLol sucCINATE 50 MG TAB.SR.24H PO SCH (08:27)
[2024-04-19] MEDS: furoSEMIDE 40 MG TABLET PO SCH (08:27)
--- NOTE | 2024-04-19 10:17 | PN ---
[facility] Cardiology Progress Note CARDIOLOGY PROGRESS NOTE April Problems: 1. Acute on chronic diastolic heart failure 2. Atrial fibrillation with rapid ventricular response status post prior suc cessful cardioversion to sinus rhythm by Dr. Lowe February 2024 3. Chronic anticoagulation with rivaroxaban 4. CAD status post stenting of the LAD 2017 with LV ejection fraction of 70% and diastolic dysfunction by echo December 2023 5. Mitral stenosis and pulmonary hypertension 6. Peripheral arterial disease status post atherectomy and angioplasty 2013 with three occlusion and progression of disease bilaterally by Doppler 2023 7. Sjogren's disease 8. Systemic hypertension 9. Dyslipidemia 10. Microcytic anemia with hemoglobin of 9.8 on admission Currently blood pressure is ranging between 101 30 systolic heart rate is in the 80s. The patient is afebrile. Hemoglobin yesterday was 10.8. Potassium today 3.8 BUN 29 creatinine 1.1. Baseline BUN 21 with a creatinine of 1.0. The patient continues on aspirin atorvastatin diltiazem CD 120 mg daily Lovenox full dose anticoagulation furosemide metoprolol succinate pantoprazole and potassium protocol. Patient has been taken off intravenous diuretics and switched over to furosemide 40 mg p.o. daily. 2D echo this admission again shows an ejection fraction of around 70%. Diastolic function could not be reassessed due to atrial fibrillation. She has mild aortic stenosis with a peak gradient of 19 mm Hg. There was [id number] mitral stenosis based on pressure half-time and gradient. I will call the granddaughter, Dr. Adelaide Martínez who was a child nurse to discuss findings and recommendations today. Her telephone number is [phone]. . SAM RODRIGUEZ MD Apr 19, 2024 10:17
--- NOTE | 2024-04-19 12:20 | PN ---
[facility] PROGRESS NOTE Date Patient Seen: Apr 19, 2024 Time of Visit: 12:20 Supervising Physician: [Dr. 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 Patient continues on supplemental oxygen with 4 L NC. Had 1500 mL of urine output on 04/17. Patient was admitted for treatment of AFib with RVR found at hand coke drawer's office. When she arrived at the ED, she had a heart rate in the low 100s, she continues with antiarrhythmics including [id number] XL and diltiazem 120 mg daily. Also currently on Lovenox as there has been discussion of possible AVN and PM. Labs including CBC and BNP are relatively within normal limits, creatinine increased to 1.2. We will await further discussion by Cardiology and patient/family. No family at bedside. 04/19 blood pressure is 107/57 with a heart rate of 96. Patient continues with supplemental oxygen currently. Per bedside nurse states that patient desaturates in the low 80s when she ambulates. Cardiology is in discussion with family about management for the atrial fibrillation. Patient currently denies any chest pain or dizziness. Labs including CBC and BMP are grossly within normal limits, potassium is 3.8, magnesium is 2.2. We will continue to monitor labs and vitals. REVIEW OF SYSTEMS: Const: No fever, or weight changes does report fatigue Eyes:[ no recent vision problems] ENT: [No congestion, ear pain, or sore throat] C/V: No chest pain yes for palpitations yes for edema Resp: [No cough, congestion, wheezing , yes for Shortness of breath] GI: [No abdominal pain, nausea, vomiting, constipation, or diarrhea] : [No incontinence of or dyuria] M/S: [No joint or pain swelling] Skin: [No rash] Neuro: [no headache, focal numbness, or weakness, dizziness or seizures] Psych: [no depression or anxiety] Heme: [no abnormal bruising or bleeding] Lymph: [no swollen glands] PHYSICAL EXAM: GENERAL: alert, weak, awake oriented x 3 HEENT: EOMI, Sclera non icteric, moist mucosa NECK: Supple, no JVD, trachea midline LUNGS: Diminished breath sounds bilaterally. No wheezes HEART: Irregular rate and rhythm. Normal S1 and S2, apical murmur, ABD: Abdomen soft, nontender. Bowel sounds present EXT: No clubbing + 1 pedal edema NEURO: Alert and oriented to person, follows commands Vital Signs (last 8hr) Date Time Temp Pulse Resp B/P (MAP) Pulse Ox O2 Delivery O2 Flow Rate FiO2 04/19/24 11:55 98.2 96 20 107/57 98 Nasal Cannula 3.0 04/19/24 08:20 97.9 88 20 134/69 96 Room Air LABS: Hematology Labs: Test 04/18/24 04:18 Range/Units White Blood Count 6.1 4.8-10.8 K/uL Red Blood Count 4.94 4.00-5.50 MIL/uL Hemoglobin 10.8 L 12.0-16.0 g/dL Hematocrit 36.8 36-48 % Mean Corpuscular Volume 74.5 L 79-99 fL Mean Corpuscular Hemoglobin 21.9 L 27.0-33.0 pg Mean Corpuscular Hemoglobin Concent 29.3 L 32.0-36.0 g/dL Red Cell Distribution Width 17.8 H 11.0-15.5 % Platelet Count 199 130-400 K/uL Mean Platelet Volume 10.3 7.5-10.5 fL Immature Granulocyte % (Auto) 0.5 0-1 % Neutrophils (%) (Auto) 59.8 40.0-77.0 % Lymphocytes (%) (Auto) 20.6 L 21.0-51.0 % Monocytes (%) (Auto) 14.1 H 3.0-13.0 % Eosinophils (%) (Auto) 3.4 0.0-8.0 % Basophils (%) (Auto) 1.6 0.0-5.0 % Neutrophils # (Auto) 3.7 1.8-7.7 K/uL Lymphocytes # (Auto) 1.3 1.0-4.8 K/uL Monocytes # (Auto) 0.9 0.1-1.0 K/uL Eosinophils # (Auto) 0.21 0.00-0.70 K/uL Basophils # (Auto) 0.10 0.00-0.20 K/uL Absolute Immature Granulocyte (auto 0.03 0-1 K/uL Nucleated Red Blood Cells 0.0 0.0-0.19 % Chemistry Labs: Test 04/19/24 10:57 04/19/24 03:50 04/18/24 04:18 Range/Units Whole Blood Glucose 202 H 70-110 MG/DL Bedside Glucose Comment Notified Nurse Sodium Level 135 L 136-145 mmol/L Potassium Level 3.8 3.5-5.1 mmol/L Chloride Level 100 L 101-111 mmol/L Carbon Dioxide Level 26 21-32 mmol/L Blood Urea Nitrogen 29 H 7-18 mg/dL Creatinine 1.1 H 0.5-1.0 mg/dL Glomerular Filtration Rate Calc 50 >90 mL/min Random Glucose 111 H 70-105 mg/dL Total Calcium 8.4 L 8.5-10.1 mg/dL Total Bilirubin 0.6 0.2-1.0 mg/dL Aspartate Amino Transf (AST/SGOT) 16 10-37 U/L Alanine Aminotransferase (ALT/SGPT) 17 12-78 U/L Alkaline Phosphatase 103 50-136 U/L Total Protein 5.9 L 6.0-8.3 g/dL Albumin 3.2 L 3.5-5.0 g/dL Magnesium Level 2.20 1.80-2.40 mg/dL DIAGNOSTICS / RADIOLOGY RESULTS: Reviewed PLAN Pending cardio recommendation Repeat BMP, Mg2+ in AM Telemetry monitoring continue B-bird Cardizem drip PRN Continue PO lasix 40 mg cardiac diet NEURO: Minimize central acting medications as possible. Maintain fall precautions, adequate lighting during the day PULMONARY: Supplemental 02 as needed. Maintain aspiration precautions at all times Maintain O2 sats above 92% CARDIOVASCULAR: Follow hemodynamics. Vital signs per facility protocol Telemetry monitoring GI & NUTRITION: Continue with nutritional support. Continue stool softeners and laxatives as needed. Heart healthy KIDNEYS & ELECTROLYTES: Strict monitoring of intake, output and overall fluid balance. Avoid nephrotoxic medications to the extent possible. Medications to be dosed according to renal function. Monitor electrolytes and replace as needed ENDOCRINE: Maintain blood glucose between 100-180 at all times. Hypoglycemia protocol in place INFECTIOUS DISEASE: Trend temperature, WBC and procalcitonin level Follow cultures, deescalate antibiotics as soon as possible. Panculture if new onset fever ONCOLOGY/HEMATOLOGY/COAGULATION: Monitor for s/s of bleeding Monitor hemoglobin, coagulation studies as needed SKIN: Pressure ulcer prevention per facility protocol Specialty mattress ORTHO/REHAB: Continue PT/OT Prophylaxis: Continue GI and DVT prophylaxis Code Status: Full Resuscitation Disposition: TBD Other: Total patient care time exceeds 35 minutes excluding all procedures. ATTESTATION BY PHYSICIAN I attest that I reviewed and discussed the case with the Physician Toll Collector Supervisor as well as agree with the Physician Toll Collector Supervisor's findings, plans of care, and documentation above. Brennen Lopez MD, MARCUS A PA Apr 19, 2024 12:20
[2024-04-20] VITALS (9 sets, daily range): BP systolic 103–137; BP diastolic 58–82; PULSE 77–93; RESP 16–20; TEMP 97.6–98.3; O2SAT 94
[2024-04-20 05:39] LABS: CREATININE 1.2 mg/dL (0.5-1.0); MAGNESIUM 1.8 mg/dL (1.80-2.40); POTASSIUM 3.7 mmol/L (3.5-5.1)
--- NOTE | 2024-04-20 07:50 | PN ---
PROBLEM LIST: * Acute on chronic diastolic congestive heart failure. * Persistent atrial fibrillation with rapid ventricular response with prior cardioversion, sinus rhythm in 02/2024. * Chronic anticoagulation with rivaroxaban. * Coronary artery disease with remote stenting of the LAD in 2018. * Moderate mitral stenosis and pulmonary hypertension by echocardiography. * Peripheral vascular disease with remote atherectomy and angioplasty in 2014 with progression of disease, being managed medically. * Sjogren's syndrome. * Hypertension. * Dyslipidemia. * Microcytic anemia. * History of moderate renal artery stenosis by angiography in 06/2023. * Raynaud's phenomena. * History of depression. * Macular degeneration. * History of erosive gastritis and hiatal hernia. This patient has been hospitalized predominantly because of atrial fibrillation with rapid ventricular response and generalized deterioration. She has been assessed by our electrophysiology colleagues as an outpatient, had been advised admission; however, the patient had declined admission and wanted to continue medical management. I assessed her in my office in followup on April 16. The patient showed marked deterioration with decompensation and significant congestive heart failure. She was unable to breathe and felt quite poorly. Because of that, the patient was hospitalized. We recommended optimizing her medical management with rate control for the time being. We had discussed the various options for continued management. The patient continued to request conservative management. She was evaluated by Dr. Sommers who is considering cardioversion versus AV reji ablation and permanent pacemaker implant. Over the past 24 hours, the patient has been comfortable. She is afebrile. Her heart rate in the 70s and 80s. Blood pressure is 110-135 systolic range. She is currently saturating on room air at 97%. The patient's exam reveals fact that she is in no apparent distress. She is lying flat. There is no evidence of jugular venous distention. The lungs are remarkable for adequate air entry bilaterally. The cardiac exam is remarkable for a displaced PMI in the mid axillary line. The patient had a loud blowing murmur at the left mid axillary line, radiating to the aortic region. She had a parasternal heave and irregular heart beat. The patient's abdomen is soft and benign. Extremities currently reflect no significant edema. The patient's laboratory studies today have revealed a sodium of 137, potassium 3.7, chloride is 101, CO2 is 26, BUN is 29, creatinine is 1.2, GFR 45. Random glucose is 121. The calcium is 8 and the magnesium is 1.8. The patient is currently maintained on furosemide, metoprolol, pantoprazole, cetirizine, baby aspirin, atorvastatin, Lovenox, hydralazine on a p.r.n. basis, and additional p.r.n. medications. At this point, I will ask the electrophysiology team to help us evaluate her in regards to additional management modalities. There is no family at the bedside at this time. TID: [id number] RECEIPT: [id number]
--- NOTE | 2024-04-20 09:05 | HMCIMG ---
CHEST 1VW REASON: eval for sob COMPARISON: 04/18/2024 FINDINGS: There is mild cardiomegaly, unchanged. There is no pulmonary vascular congestion. There are no focal infiltrates. There is no pleural effusion. IMPRESSION: 1. Mild cardiomegaly, unchanged, no acute finding.+
--- NOTE | 2024-04-20 13:21 | PN ---
[facility] PROGRESS NOTE Date Patient Seen: Apr 20, 2024 Time of Visit: 13:11 Supervising Physician: [Dr. 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 Patient continues on supplemental oxygen with 4 L NC. Had 1500 mL of urine output on 04/17. Patient was admitted for treatment of AFib with RVR found at carburetor specialist's office. When she arrived at the ED, she had a heart rate in the low 100s, she continues with antiarrhythmics including XL and diltiazem 120 mg daily. Also currently on Lovenox as there has been discussion of possible AVN and PM. Labs including CBC and BNP are relatively within normal limits, creatinine increased to 1.2. We will await further discussion by Cardiology and patient/family. No family at bedside. 04/19 blood pressure is 107/57 with a heart rate of 96. Patient continues with supplemental oxygen currently. Per bedside nurse states that patient desaturates in the low 80s when she ambulates. Cardiology is in discussion with family about management for the atrial fibrillation. Patient currently denies any chest pain or dizziness. Labs including CBC and BMP are grossly within normal limits, potassium is 3.8, magnesium is 2.2. We will continue to monitor labs and vitals. 04/20 Patient denies any current chest pain. Admits dizziness with sitting to standing and sitting to standing. Pending further cardiac recommendation. She has been in A-fib with HR mostly in 80-90's. Medically managed. REVIEW OF SYSTEMS: Const: No fever, or weight changes does report fatigue Eyes:[ no recent vision problems] ENT: [No congestion, ear pain, or sore throat] C/V: No chest pain yes for palpitations yes for edema Resp: [No cough, congestion, wheezing , yes for Shortness of breath] GI: [No abdominal pain, nausea, vomiting, constipation, or diarrhea] : [No incontinence of or dyuria] M/S: [No joint or pain swelling] Skin: [No rash] Neuro: [no headache, focal numbness, or weakness, dizziness or seizures] Psych: [no depression or anxiety] Heme: [no abnormal bruising or bleeding] Lymph: [no swollen glands] PHYSICAL EXAM: GENERAL: alert, weak, awake oriented x 3 HEENT: EOMI, Sclera non icteric, moist mucosa NECK: Supple, no JVD, trachea midline LUNGS: Diminished breath sounds bilaterally. No wheezes HEART: Irregular rate and rhythm. Normal S1 and S2, apical murmur, ABD: Abdomen soft, nontender. Bowel sounds present EXT: No clubbing + 1 pedal edema NEURO: Alert and oriented to person, follows commands Vital Signs (last 8hr) Date Time Temp Pulse Resp B/P (MAP) Pulse Ox O2 Delivery O2 Flow Rate FiO2 04/20/24 11:45 98.1 93 16 115/66 94 Nasal Cannula 3.0 04/20/24 08:09 98.1 84 18 133/80 94 Nasal Cannula 3.0 LABS: Chemistry Labs: Test 04/20/24 10:40 04/20/24 05:04 04/19/24 03:50 Range/Units Whole Blood Glucose 197 #H 70-110 MG/DL Bedside Glucose Comment Notified Nurse Sodium Level 137 136-145 mmol/L Potassium Level 3.7 3.5-5.1 mmol/L Chloride Level 101 101-111 mmol/L Carbon Dioxide Level 26 21-32 mmol/L Blood Urea Nitrogen 29 H 7-18 mg/dL Creatinine 1.2 H 0.5-1.0 mg/dL Glomerular Filtration Rate Calc 45 >90 mL/min Random Glucose 121 H 70-105 mg/dL Total Calcium 8.0 L 8.5-10.1 mg/dL Magnesium Level 1.80 1.80-2.40 mg/dL Total Bilirubin 0.6 0.2-1.0 mg/dL Aspartate Amino Transf (AST/SGOT) 16 10-37 U/L Alanine Aminotransferase (ALT/SGPT) 17 12-78 U/L Alkaline Phosphatase 103 50-136 U/L Total Protein 5.9 L 6.0-8.3 g/dL Albumin 3.2 L 3.5-5.0 g/dL DIAGNOSTICS / RADIOLOGY RESULTS: [ ] PLAN Pending cardio recommendation Repeat BMP, Mg2+ in AM Telemetry monitoring continue B-bird Cardizem drip PRN Continue PO lasix 40 mg cardiac diet NEURO: Minimize central acting medications as possible. Maintain fall precautions, adequate lighting during the day PULMONARY: Supplemental 02 as needed. Maintain aspiration precautions at all times Maintain O2 sats above 92% CARDIOVASCULAR: Follow hemodynamics. Vital signs per facility protocol Telemetry monitoring GI & NUTRITION: Continue with nutritional support. Continue stool softeners and laxatives as needed. Heart healthy KIDNEYS & ELECTROLYTES: Strict monitoring of intake, output and overall fluid balance. Avoid nephrotoxic medications to the extent possible. Medications to be dosed according to renal function. Monitor electrolytes and replace as needed ENDOCRINE: Maintain blood glucose between 100-180 at all times. Hypoglycemia protocol in place INFECTIOUS DISEASE: Trend temperature, WBC and procalcitonin level Follow cultures, deescalate antibiotics as soon as possible. Panculture if new onset fever ONCOLOGY/HEMATOLOGY/COAGULATION: Monitor for s/s of bleeding Monitor hemoglobin, coagulation studies as needed SKIN: Pressure ulcer prevention per facility protocol Specialty mattress ORTHO/REHAB: Continue PT/OT Prophylaxis: Continue GI and DVT prophylaxis Code Status: Full Resuscitation Disposition: TBD Other: Total patient care time exceeds 35 minutes excluding all procedures. ATTESTATION BY PHYSICIAN I attest that I reviewed and discussed the case with the Physician Engineering Librarian as well as agree with the Physician Engineering Librarian's findings, plans of care, and documentation above. Brennen Lopez MD, MARCUS A PA Apr 20, 2024 13:21
[2024-04-20] MEDS: doCUSate SODIUM 100 MG CAP PO PRN (20:40)
[2024-04-20] MEDS: MAGNESIUM OXIDE 400 MG TABLET PO SCH (20:40)
[2024-04-21 04:36] VITALS: BP 133/79; PULSE 79; RESP 18; TEMP 98
[2024-04-21 05:18] LABS: CREATININE 1.1 mg/dL (0.5-1.0); MAGNESIUM 1.9 mg/dL (1.80-2.40); POTASSIUM 4.7 mmol/L (3.5-5.1)
[2024-04-21 08:00] VITALS: BP 113/66; PULSE 80; RESP 18; TEMP 97.5; O2SAT 98
--- NOTE | 2024-04-21 08:36 | PN ---
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 The patient has tried to wean herself from the oxygen or take breaks but she becomes excessively short of breath. Heart rate is better controlled in the 70s to 80s, blood pressure is adequate. The patient continues with loud murmur in the mid axillary line radiating up to the aortic 2nd intercostal space area. Lower extremity edema has resolved. EP is discussing the possibility of ablation for her recurrent AFib with RVR as well as permanent pacemaker insertion to help with rate control. The patient persists with pulmonary hypertension likely from valvular dysfunction. She is elderly, frail and high-risk for continued decompensation. Physical Examination: GENERAL: [No acute distress.] HEAD: [Normal with no signs of head trauma.] EYES: EOMl.] ENT: [Hearing grossly intact, normal oropharynx.] LUNGS: Clear lung sounds to upper lobes with diminished air entry to bases HEART: [Normal rate. regular rhythm. Blowing murmur mid axillary line radiating to 2nd intercostal space on the right side .] VASC: [Peripheral pulses, trace edema bilaterally.] ABD: [Bowel sounds normal, soft, nontender, no masses, no organomegaly. No audible bruits.] : [Not examined] EXT: [No clubbing, cyanosis or edema.] SKIN: [No rashes or lesions noted.] NEURO: [Awake, alert, and oriented x3. .] Laboratory: [ ] Chemistry Labs: Test 04/21/24 05:25 04/21/24 04:47 04/20/24 10:40 Range/Units Whole Blood Glucose 127 H 70-110 MG/DL Sodium Level 144 136-145 mmol/L Potassium Level 4.7 3.5-5.1 mmol/L Chloride Level 108 101-111 mmol/L Carbon Dioxide Level 26 21-32 mmol/L Blood Urea Nitrogen 29 H 7-18 mg/dL Creatinine 1.1 H 0.5-1.0 mg/dL Glomerular Filtration Rate Calc 50 >90 mL/min Random Glucose 126 H 70-105 mg/dL Total Calcium 8.3 L 8.5-10.1 mg/dL Magnesium Level 1.90 1.80-2.40 mg/dL Bedside Glucose Comment Notified Nurse Diagnostics / Radiology: PATIENT: ОЛЕГ SALINAS MR#: [id number] : 1940 SEX: F AGE: 83 LOCATION: 4AH ORDER 2300 STATUS: ADM IN REPORT#: [id number] SERVICE 0600 REASON: eval for sob ORDERING PHYSICIAN: EMILI CABALLERO PROCEDURE: CXR1VW - CHEST 1VW CHEST 1VW REASON: eval for sob COMPARISON: 04/18/2024 FINDINGS: There is mild cardiomegaly, unchanged. There is no pulmonary vascular congestion. There are no focal infiltrates. There is no pleural effusion. IMPRESSION: 1. Mild cardiomegaly, unchanged, no acute finding.+ DICTATED BY: DICK CHANDRA MD DATE: 04/20/24899 ELECTRONICALLY SIGNED BY: DICK CHANDRA MD DATE: 04/20/24904 PATIENT: ОЛЕГ SALINAS MR#: [id number] : 1940 SEX: F AGE: 83 LOCATION: 4AH ORDER 1534 STATUS: ADM IN REPORT#: [id number] SERVICE 1533 REASON: acute heart failure assess mitral valve ORDERING PHYSICIAN: TALI VILLARREAL PROCEDURE: ECHO CMP - ECHO 2-D COMPLETE APPROVED REPORT EXAM: Two-dimensional and M-mode echocardiogram with Doppler and color Doppler. Study Details: Hx: HTN, HLP, CAD, PAD INDICATION ICD: Acute heart failure assess mitral valve Aortic Valve AoV Vmax 2.1 m/s Ao Peak GR 19.0 mmHg JEFFERSON (VMAX) 1.4 cm2 Ao Mean GR 8.0 mmHg Tricuspid Valve RAP (EST) 8 mmHg RVSP 8.0 mmHg Left Ventricle Left ventricular cavity size is normal. Moderate concentric left ventricular hypertrophy. LVEF is >70%. No left ventricle thrombus noted on this study. Indeterminate diastolic dysfunction. Right Ventricle The right ventricle is normal size. The right ventricular systolic function is normal. Atria The left atrium is severely dilated. The right atrium is moderately to severely dilated. Aortic Valve The aortic valve is moderately to severely calcified. Aortic valve is trileaflet. Right coronary cusp leaflet has decreased excursion. No aortic regurgitation is present. There is mild aortic valvular stenosis. Mitral Valve Calcified chordal apparatus. Severe mitral annular calcification. The mitral leaflets are thickened with restricted motion. There is mild mitral valve regurgitation noted. There is mild to moderate mitral valve stenosis. Tricuspid Valve The tricuspid valve leaflets open well. Tricuspid valve leaflets appear prolaps ed. There is trace of tricuspid valve regurgitation noted. Pulmonic Valve The pulmonary valve is normal in structure and function. There is no pulmonic valvular regurgitation. Great Vessels The aortic root is normal in size. IVC is normal in size and collapses <50% with inspiration. Pericardium No pericardial effusion. Other Information Quality : Technically difficult study due to body habitus. Conclusion Moderate concentric left ventricular hypertrophy. LVEF is >70%. The aortic valve is moderately to severely calcified. Aortic valve is trileaflet. Right coronary cusp leaflet has decreased excursion. No aortic regurgitation is present. There is mild aortic valvular stenosis. Calcified chordal apparatus. Severe mitral annular calcification. The mitral leaflets are thickened with restricted motion. There is mild mitral valve regurgitation noted. There is mild to moderate mitral valve stenosis. DICTATED BY: SAM RODRIGUEZ MD DATE: 04/17/24806 ELECTRONICALLY SIGNED BY: SAM RODRIGUEZ MD DATE: 04/17/241817 Impression and Plan: Patient has pulmonary hypertension, secondary to mitral valve insufficiency/stenosis. Recurrent atrial fibrillation with rapid ventricular response currently adequately controlled at this time while patient is at rest. Patient has also developed hypoxemic respiratory failure likely related to the pulmonary hypertension. We are pending decision from EP to evaluate her for ablation and permanent pacemaker placement, she continues with gentle diuresis and daily weights along with fluid restriction and salt restricted diet EMILI CABALLERO AGACNP Apr 21, 2024 08:36
[2024-04-21 12:00] VITALS: BP 118/70; PULSE 83; RESP 18; TEMP 97.8
--- NOTE | 2024-04-21 13:03 | PN ---
[facility] PROGRESS NOTE Date Patient Seen: Apr 21, 2024 Time of Visit: 13:02 Supervising Physician: [Dr. 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 Patient continues on supplemental oxygen with 4 L NC. Had 1500 mL of urine output on 04/17. Patient was admitted for treatment of AFib with RVR found at surface plate finisher's office. When she arrived at the ED, she had a heart rate in the low 100s, she continues with antiarrhythmics including [id number] XL and diltiazem 120 mg daily. Also currently on Lovenox as there has been discussion of possible AVN and PM. Labs including CBC and BNP are relatively within normal limits, creatinine increased to 1.2. We will await further discussion by Cardiology and patient/family. No family at bedside. 04/19 blood pressure is 107/57 with a heart rate of 96. Patient continues with supplemental oxygen currently. Per bedside nurse states that patient desaturates in the low 80s when she ambulates. Cardiology is in discussion with family about management for the atrial fibrillation. Patient currently denies any chest pain or dizziness. Labs including CBC and BMP are grossly within normal limits, potassium is 3.8, magnesium is 2.2. We will continue to monitor labs and vitals. 04/20 Patient denies any current chest pain. Admits dizziness with sitting to standing and sitting to standing. Pending further cardiac recommendation. She has been in A-fib with HR mostly in 80-90's. Medically managed. 04/21 Patient evaluated at bedside. She is hypoxic on 4LNC. No respiratory distress at rest but gets significantly winded with minimal exertion. She continues with A-fib with HR in the 80's, medically managed. She was recommen ded for AVN and PPM but after discussion among family and EP, patient and family decline any invasive procedures at this time. REVIEW OF SYSTEMS: Const: No fever, or weight changes does report fatigue Eyes:[ no recent vision problems] ENT: [No congestion, ear pain, or sore throat] C/V: No chest pain yes for palpitations yes for edema Resp: [No cough, congestion, wheezing , yes for Shortness of breath] GI: [No abdominal pain, nausea, vomiting, constipation, or diarrhea] : [No incontinence of or dyuria] M/S: [No joint or pain swelling] Skin: [No rash] Neuro: [no headache, focal numbness, or weakness, dizziness or seizures] Psych: [no depression or anxiety] Heme: [no abnormal bruising or bleeding] Lymph: [no swollen glands] PHYSICAL EXAM: GENERAL: alert, weak, awake oriented x 3 HEENT: EOMI, Sclera non icteric, moist mucosa NECK: Supple, no JVD, trachea midline LUNGS: Diminished breath sounds bilaterally. No wheezes HEART: Irregular rate and rhythm. Normal S1 and S2, apical murmur, ABD: Abdomen soft, nontender. Bowel sounds present EXT: No clubbing + 1 pedal edema NEURO: Alert and oriented to person, follows commands Vital Signs (last 8hr) Date Time Temp Pulse Resp B/P (MAP) Pulse Ox O2 Delivery O2 Flow Rate FiO2 04/21/24 12:00 97.9 83 18 118/70 98 Nasal Cannula 3.0 04/21/24 08:00 98 Nasal Cannula* 3 32 04/21/24 08:00 97.5 80 18 113/66 98 Nasal Cannula 3.0 LABS: Chemistry Labs: Test 04/21/24 10:57 04/21/24 04:47 04/20/24 10:40 Range/Units Whole Blood Glucose 165 H 70-110 MG/DL Sodium Level 144 136-145 mmol/L Potassium Level 4.7 3.5-5.1 mmol/L Chloride Level 108 101-111 mmol/L Carbon Dioxide Level 26 21-32 mmol/L Blood Urea Nitrogen 29 H 7-18 mg/dL Creatinine 1.1 H 0.5-1.0 mg/dL Glomerular Filtration Rate Calc 50 >90 mL/min Random Glucose 126 H 70-105 mg/dL Total Calcium 8.3 L 8.5-10.1 mg/dL Magnesium Level 1.90 1.80-2.40 mg/dL Bedside Glucose Comment Notified Nurse DIAGNOSTICS / RADIOLOGY RESULTS: [ ] PLAN 6 minute walk prior to discharge Patient to consider OOH DNR, given her decision against intervention Telemetry monitoring continue B-bird Cardizem drip PRN Continue PO lasix 40 mg cardiac diet NEURO: Minimize central acting medications as possible. Maintain fall precautions, adequate lighting during the day PULMONARY: Supplemental 02 as needed. Maintain aspiration precautions at all times Maintain O2 sats above 92% CARDIOVASCULAR: Follow hemodynamics. Vital signs per facility protocol Telemetry monitoring GI & NUTRITION: Continue with nutritional support. Continue stool softeners and laxatives as needed. Heart healthy KIDNEYS & ELECTROLYTES: Strict monitoring of intake, output and overall fluid balance. Avoid nephrotoxic medications to the extent possible. Medications to be dosed according to renal function. Monitor electrolytes and replace as needed ENDOCRINE: Maintain blood glucose between 100-180 at all times. Hypoglycemia protocol in place INFECTIOUS DISEASE: Trend temperature, WBC and procalcitonin level Follow cultures, deescalate antibiotics as soon as possible. Panculture if new onset fever ONCOLOGY/HEMATOLOGY/COAGULATION: Monitor for s/s of bleeding Monitor hemoglobin, coagulation studies as needed SKIN: Pressure ulcer prevention per facility protocol Specialty mattress ORTHO/REHAB: Continue PT/OT Prophylaxis: Continue GI and DVT prophylaxis Code Status: Full Resuscitation Disposition: TBD Other: Total patient care time exceeds 35 minutes excluding all procedures. ATTESTATION BY PHYSICIAN I attest that I reviewed and discussed the case with the Physician Geothermal Production Manager as well as agree with the Physician Geothermal Production Manager's findings, plans of care, and documentation above. Brennen Lopez MD, MARCUS A PA Apr 21, 2024 13:02
--- NOTE | 2024-04-21 14:02 | PN ---
[facility] CARDIAC ELECTROPHYSIOLOGY PROGRESS NOTE Date Patient Seen: Apr 21, 2024 Time of Visit: 13:57 Problem List: 1. Persistent atrial fibrillation with suboptimal ventricular control 2.Chronic anticoagulation with Xarelto 3. Acute diastolic CHF exacerbation 4. Mitral stenosis 5. Pulmonary Hypertension 6. 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 not much ambulation. conversational dyspnea Physical Examination: GENERAL: [No acute distress.] HEAD: [Normal with no signs of head trauma.] EYES: EOMl.] ENT: [Hearing grossly intact, normal oropharynx.] HEART: [irregular rate and rhythm .] VASC: [Peripheral pulses, trace edema bilaterally.] EXT: [No clubbing, cyanosis or edema.] SKIN: [No rashes or lesions noted.] NEURO: [Awake, alert, and oriented x3. .] Laboratory: [ ] Chemistry Labs: Test 04/21/24 10:57 04/21/24 04:47 04/20/24 10:40 Range/Units Whole Blood Glucose 165 H 70-110 MG/DL Sodium Level 144 136-145 mmol/L Potassium Level 4.7 3.5-5.1 mmol/L Chloride Level 108 101-111 mmol/L Carbon Dioxide Level 26 21-32 mmol/L Blood Urea Nitrogen 29 H 7-18 mg/dL Creatinine 1.1 H 0.5-1.0 mg/dL Glomerular Filtration Rate Calc 50 >90 mL/min Random Glucose 126 H 70-105 mg/dL Total Calcium 8.3 L 8.5-10.1 mg/dL Magnesium Level 1.90 1.80-2.40 mg/dL Bedside Glucose Comment Notified Nurse Diagnostics / Radiology: reviewed 0-80 Impression and Plan: 1. Persistent atrial fibrillation with suboptimal ventricular control 2.Chronic anticoagulation with Xarelto 3. Acute diastolic CHF exacerbation 4. Mitral stenosis 5. Pulmonary Hypertension 6. 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 her rates are acceptable with VR 70-80. we will continue BB /CCB. we will see patient in clinic 2 weeks post discharge. EP team will sign off at present. THank [facility] for this consult ANANYA MASON MD Apr 21, 2024 14:02
[2024-04-21 16:00] VITALS: BP 106/65; PULSE 82; RESP 18; TEMP 96
[2024-04-21 20:00] VITALS: O2SAT 100
[2024-04-22] VITALS (7 sets, daily range): BP systolic 108–129; BP diastolic 58–74; PULSE 60–112; RESP 17–26; TEMP 97.6–98.3; O2SAT 96–100
--- NOTE | 2024-04-22 07:10 | PN ---
PROBLEM LIST: * Atrial fibrillation with rapid ventricular response in the office with prior history of successful cardioversion in February of this year, currently with recurrent atrial fibrillation. * Chronic anticoagulation with Xarelto. * Acute diastolic congestive heart failure. * History of mitral valve incompetence and severe left atrial dilation. * Acute hypoxemic respiratory failure with pulmonary edema, resolved. * History of pulmonary fibrosis. * Autoimmune disease with Sjogren syndrome, and autoimmune lung disease with fibrosis. * Chronic microcytic anemia. * History of gastritis. * Hyperlipoproteinemia. * Severe peripheral vascular disease. * History of mild dementia. * History of nonobstructive renal artery stenosis. * Benign carotid flow studies in 2023. * Preserved left ventricular systolic function with a markedly dilated right and left atrium, mild aortic valve stenosis with severe mitral annular calcification with mild mitral regurgitation and mild to moderate mitral stenosis by echocardiography on this admission. * History of hypertension. * History of dyslipidemia. * History of Raynaud's phenomena. * History of depression. * History of macular degeneration. * History of erosive gastritis and hiatal hernia. This patient has been hospitalized predominantly because of debility and fatigue with shortness of breath. When I saw her in the office, the patient was in atrial fibrillation with rapid ventricular response. She was hospitalized for better rate control. She has also been evaluated by electrophysiology and Dr. Holly Sommers has been helping with management. The patient has been placed on metoprolol and diltiazem. With that, her rate control has improved significantly. She is currently in the 70s and 80s. I had had a detailed discussion with the patient's family and with the patient as well as with Dr. Sommers. We were considering permanent pacemaker placement and AV reji ablation. The patient continued to have AFib with RVR; however, the patient's granddaughter who is a instructional paraprofessional in [place] had recommended only conservative medical management for the time being, which certainly seems reasonable given the fact that the patient's rate is now better controlled. On assessing the patient this morning, she appears to be comfortable, in no apparent distress. Her vital signs have been stable. She is afebrile. Her blood pressures in the 120 systolic range. She is currently saturating at 96-98% on room air; however, when she ambulates, she has been desaturating. The heart rate has been relatively well controlled with rates in the 70s and 80s. She is not having any additional episodes of rapid ventricular response on the current medications. The patient is currently maintained on magnesium, furosemide, metoprolol, pantoprazole, diltiazem, cetirizine, baby aspirin, atorvastatin, Lovenox at 1 mg/kg b.i.d., hydralazine on a p.r.n. basis for blood pressure control. The Xarelto has been on hold because of those anticipation of an intervention. The patient has not had any laboratory studies except for glucose this morning which is 110 range. CBC on the revealed mild anemia with microcytic indices with a normal platelet count. Her chemistries yesterday had revealed a sodium of 144, potassium 4.7, chloride is 108, CO2 is 26, BUN is 29, creatinine is 1.1 with a GFR of 50. The patient's end terminal proBNP was elevated at 3043 and her BNP was elevated at 1200. She is currently maintained on furosemide as mentioned. The patient's TSH was 1.54. Troponin was normal. Liver enzymes are normal. Her dose of furosemide has been maintained. At this point, the recommendation was to continue current conservative measures as per the patient's family's request. The patient is a frail and debilitated 83-year-old female with multiple comorbid conditions as outlined and with some mild dementia. Given all that, we will continue the current measures. I am hopeful that we can avoid any interventions. We will recommend maintaining the same medications for the time being. We would like to thank you for allowing us to participate in this patient's care. We would be happy to reassess her as needed. TID: [id number] RECEIPT: [id number]
[2024-04-22 11:15] LABS: HEMATOCRIT 38.4 % (36-48); MEAN CORPUSCULAR HEMOGLOBIN 22.3 pg (27.0-33.0); MEAN CORPUSCULAR HGB CONC 28.6 g/dL (32.0-36.0); MEAN CORPUSCULAR VOLUME 77.9 fL (79-99); RED BLOOD CELL COUNT(AUTO) 4.93 MIL/uL (4.00-5.50); WHITE BLOOD COUNT (AUTO) 5.2 K/uL (4.8-10.8)
[2024-04-22 11:26] LABS: CREATININE 1.1 mg/dL (0.5-1.0); POTASSIUM 4.4 mmol/L (3.5-5.1)
[2024-04-22] MEDS ORDERED: METO-391 PO (15:26)
--- NOTE | 2024-04-22 15:27 | DS ---
[facility] DISCHARGE SUMMARY Date Patient Seen: Apr 22, 2024 Time of Visit: 15:26 Supervising Physician: [Dr. 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 History of atrial fibrillation on Chronic anticoagulation with Xarelto Acute hypoxic respiratory failure, POA Acute on chronic diastolic heart failure with the EF of 60% in 2018 History of pulmonary hypertension PAD Hyperglycemia in the presence of type 2 diabetes mellitus Hypomagnesemia Chronic microcytic hypochromic anemia, POA Thoracic aorta atherosclerosis Renal artery atherosclerosis 50% ostium lesion right renal per abdominal aortogram Raynaud's phenomenon Sjogren's syndrome HOSPITAL COURSE: HPI (per admitting provider) This is a 89-year-old chronically ill female with a history of hypertension, type 2 diabetes mellitus, CAD status post PTCA stenting, diastolic heart failure, pulmonary hypertension, PAD, severe mitral stenosis, chronic atrial fibrillation on anticoagulation with prior history of cardioversion on 02/12/24 who was sent in via EMS from Cardiology office for concerns of severe dilated mitral valve. Per report patient was in AFib with RVR at the cardiology office with heart rate 100-150, hemodynamically stable. Patient directly admitted but due to no rooms on the PCCU floor patient arrived at the emergency department. She was received in the emergency department, EKG showed AFib with rate of 102. On heart rate monitor 68. Patient is hemodynamically stable. She reports shortness of breath with minimal exertion. Denies any chest pain palpitations nausea vomiting at this time. She does report fatigue and generalized body weakness. On laboratory WBCs are normal and normal neutrophils. H&H is 9.8/33.6 MCV 70 6.2 MCHC 29.2, with a platelet count of [id number]. Patient's consistent with microcytic hypochromic anemia. Chemistries sodium is normal 137, potassium is four BUN 24 glucose is 113 mg/dL lactic is normal at 2.1 with a total calcium of 8.4 magnesium is 1.50 covered per protocol. Liver enzymes are normal CK is normal at 76 sensitive troponin was 44.6 total protein 6.2 albumin 3.5 TSH is normal at 1.54. Cardiology was consulted for evaluation and recommended AVN ablation and pacemaker d/t persistent symptomatic A-fib despite medical treatment. This was discussed among family including the patient's daughter who is a public health assistant. After discussion, the patient and family declined procedure and opted for continued medical management. Patient is advised for OOH DNR given persistent symptomatic afib and not declining intervention, no family at bedside to discuss this with. She remained on supplemental oxygen and was thought to be desaturating in the 50% but was determined to be a faulty oximeter. It was replaced and patient was saturating well. She passed a six-minute walk prior to discharge and was discharged home in stable condition without home O2. She was advised to follow up with her PCP and public health assistant outpatient. 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 History of atrial fibrillation on Chronic anticoagulation with Xarelto Acute hypoxic respiratory failure, POA Acute on chronic diastolic heart failure with the EF of 60% in 2018 History of pulmonary hypertension PAD Hyperglycemia in the presence of type 2 diabetes mellitus Hypomagnesemia Chronic microcytic hypochromic anemia, POA Thoracic aorta atherosclerosis Renal artery atherosclerosis 50% ostium lesion right renal per abdominal aortogram Raynaud's phenomenon Sjogren's syndrome CHRONIC PROBLEMS: continue previous management per PCP unless otherwise in dicated PLUSH FINISHER FINDINGS/RECOMMENDATIONS: [Discussed management option's with patient's grand-daughter who is a public health assistant in [place] and she favors medications/conservative strategies for now and only consider AVN ablation + PPM should she have recurrent admission with afib with RVR. her rates are acceptable with VR 70-80. we will continue BB/CCB. we will see patient in clinic 2 weeks post discharge.] PROCEDURES: as mentioned above DISCHARGE MEDICATIONS: Continue current medical management with medications listed below. Pt hemodynamically stable and afebrile at time of discharge. PCP notified of patients admission, hospital course and discharge. Changed Medications: Metoprolol Succinate (Metoprolol Succinate) 50 Mg Tab.er.24h 1 TAB PO DAILY for 30 Days, #30 TAB 0 Refills (Changed from: Metoprolol Succinate (Toprol Xl) 25 Mg Tab.er.24h 25 Mg PO DAILY) Continued Medications: Acetaminophen (Arthritis Pain Relief) 650 Mg Tablet.er 650 MG PO AD PRN for PAIN, TAB Aspirin (Aspirin 81 Mg Ectab) 81 Mg Ectab 81 MG PO DAILY, TAB.EC Atorvastatin Calcium (Atorvastatin Calcium) 40 Mg Tablet 40 MG PO HS, TAB Cetirizine HCl (Zyrtec) 10 Mg Capsule 10 MG PO DAILY, CAP Cholecalciferol (Vitamin D3) (Vitamin D3) 25 Mcg (1000 Unit) Tablet 25 MCG PO BID, TAB Dapagliflozin Propanediol (Farxiga) 10 Mg Tablet 10 MG PO DAILY, TAB Diltiazem HCl (Diltiazem ER) 120 Mg Cap.er.12h 120 MG PO DAILY, CAPSULE. Docusate Sodium (Docusate Sodium) 100 Mg Capsule 100 MG PO BID PRN for CONSTIPATION, CAP Duloxetine HCl (Duloxetine HCl) 20 Mg Capsule.dr 20 MG PO DAILY, CAP Furosemide (Lasix 20Mg Tab) 20 Mg Tablet 20 MG PO BID, TAB Hydroxychloroquine Sulfate (Hydroxychloroquine Sulfate) 200 Mg Tablet 200 MG PO DAILY, TAB Icosapent Ethyl (Vascepa) 1 Gram Capsule 2 GM PO BID, CAP Magnesium Gluconate (Magnesium Gluconate) 27 Mg Magnesium (500 Mg) Tablet 250 MG PO BID, TAB Memantine HCl (Memantine HCl) 5 Mg Tablet 5 MG PO DAILY, TAB Ondansetron (Ondansetron Odt) 4 Mg Tab.rapdis 4 MG PO [id number] PRN for NAUSEA/VOMITING, TAB Pantoprazole Sodium (Pantoprazole Sodium) 40 Mg Tablet.dr 40 MG PO DAILY, TAB Rivaroxaban (Xarelto) 20 Mg Tablet 20 MG PO HS, TAB Tramadol HCl/Acetaminophen (Tramadol-Acetaminophn 37.5-325) 37.5 Mg-325 Mg Tablet 1 EACH PO DAILY PRN for PAIN, TAB Discontinued Medications: Propafenone HCl (Propafenone HCl) 225 Mg Cap.er.12h 225 MG PO BID, CAPSULE. PHYSICAL EXAM: GENERAL: alert, weak, awake oriented x 3 HEENT: EOMI, Sclera non icteric, moist mucosa NECK: Supple, no JVD, trachea midline LUNGS: Diminished breath sounds bilaterally. No wheezes HEART: Irregular rate and rhythm. Normal S1 and S2, apical murmur, ABD: Abdomen soft, nontender. Bowel sounds present EXT: No clubbing + 1 pedal edema NEURO: Alert and oriented to person, follows commands FOLLOW-UP: Follow-up with PCP in 2-3 days for routine evaluation. F/U with cardiology outpatient as scheduled. Continue current medical management with CCB/BB as recommended per cardiology. RECOMMENDATIONS: See Discharge Instructions This case was seen and discussed with my supervising physician. More than 30 minutes spent on discharge process, including evaluation of the patient, discussion with nursing staff, medication reconciliation and follow-up appointments TIANNA ISABEL Apr 22, 2024 15:27
[2024-04-22] MEDS ORDERED: RIVAROXABAN 15 MG TABLET PO SCH (21:00)
== END 2024-04-22 18:08 | disposition home or self-care (01) | DRG 291 ==
LOC: EDH 13:51 → EDHIP 14:36 → 4AH 04-17 01:23
PROVIDERS: ADMIT Internal Medicine; ATTEND Internal Medicine
DX: I11.0 Hypertensive heart disease with heart failure (principal); I50.33 Acute on chronic diastolic (congestive) heart failure; J96.01 Acute respiratory failure with hypoxia; I48.19 Other persistent atrial fibrillation; E11.65 Type 2 diabetes mellitus with hyperglycemia; E83.42 Hypomagnesemia; D50.9 Iron deficiency anemia, unspecified; I70.0 Atherosclerosis of aorta; I70.1 Atherosclerosis of renal artery; I73.00 Raynaud's syndrome without gangrene; M35.00 Sjogren syndrome, unspecified; I27.20 Pulmonary hypertension, unspecified; I34.0 Nonrheumatic mitral (valve) insufficiency; F03.A0 Unspecified dementia, mild, without behavioral disturbance, psychotic disturbance, mood disturbance, and anxiety; E78.5 Hyperlipidemia, unspecified; F32.A Depression, unspecified; G89.29 Other chronic pain; I25.10 Atherosclerotic heart disease of native coronary artery without angina pectoris; Z66 Do not resuscitate; Z79.82 Long term (current) use of aspirin; Z79.899 Other long term (current) drug therapy; Z79.01 Long term (current) use of anticoagulants; Z87.19 Personal history of other diseases of the digestive system; Z95.0 Presence of cardiac pacemaker; Z95.5 Presence of coronary angioplasty implant and graft
CPT/HCPCS: 36415; 71045; 71047; 71250; 80048; 80053; 82550; 82948; 83605; 83735; 83880; 84100; 84443; 84484; 85025; 85027; 87040; 87426; 87804; 93005; 93306; 94760; G0378; J1650; J1940; J2470; J3475

== ENCOUNTER 2024-11-20 08:11 | Day surgery (SDC) | payer MEDICARE, MEDICAID ==
[2024-11-20] VITALS (11 sets, daily range): BP systolic 133–164; BP diastolic 76–94; PULSE 84–99; RESP 12–20; TEMP 97.3–97.5
[~2024-11-20] VITALS: Ht 157.5 cm; Wt 55.5 kg
[~2024-11-20 08:11] MED LIST changes: +METO-391 PO; -METO25TA3 PO; +PANT40TA54 PO; -PROP225C24 PO
[2024-11-20] MEDS ORDERED: METO-391 PO (09:13)
[2024-11-20] MEDS ORDERED: OMEP20CA12 PO (09:13)
[2024-11-20] MEDS ORDERED: TADA5TAB PO (09:13)
[2024-11-20 09:14] LABS: BASOPHILS # (AUTO) 0.08 K/uL (0.00-0.20); BASOPHILS % (AUTO) 1.6 % (0.0-5.0); EOSINOPHILS # (AUTO) 0.16 K/uL (0.00-0.70); EOSINOPHILS % (AUTO) 3.2 % (0.0-8.0); IMMATURE GRANULOCYTE ABSOLUTE 0.03 K/uL (0-1); LYMPHOCYTES # (AUTO) 0.6 K/uL (1.0-4.8); LYMPHOCYTES % (AUTO) 11.3 % (21.0-51.0); MEAN CORPUSCULAR HGB CONC 31.1 g/dL (32.0-36.0); MEAN CORPUSCULAR VOLUME 83.5 fL (79-99); MONOCYTES # (AUTO) 0.5 K/uL (0.1-1.0); MONOCYTES % (AUTO) 9.5 % (3.0-13.0); NEUTROPHILS # (AUTO) 3.6 K/uL (1.8-7.7); NEUTROPHILS % (AUTO) 73.8 % (40.0-77.0); PLATELET COUNT (AUTO) 212 K/uL (130-400); RED BLOOD CELL COUNT(AUTO) 5.39 MIL/uL (4.00-5.50); RED CELL DISTRIBUTION WIDTH 16.8 % (11.0-15.5); WHITE BLOOD COUNT (AUTO) 4.9 K/uL (4.8-10.8)
--- NOTE | 2024-11-20 09:20 | EKG ---
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
[2024-11-20 09:21] LABS: CREATININE 0.8 mg/dL (0.5-1.0); POTASSIUM 4.4 mmol/L (3.5-5.1)
[2024-11-20 09:23] LABS: INR 1.16 (0.85-1.15); PROTHROMBIN TIME 12.1 SEC (9.6-11.6)
[2024-11-20 09:25] LABS: PARTIAL THROMBOPLASTIN TIME 29.7 SEC (26.3-35.5)
[2024-11-20] MEDS ORDERED: ceFAZolin SODIUM 1 GM VIAL ONE (13:05)
[2024-11-20] MEDS ORDERED: LIDOCAINE HCL 1% MDV 50ML VIAL ONE (13:05)
[2024-11-20] MEDS ORDERED: SODIUM BICARB 50MEQ 50ML VIAL 0 ML ONE (13:05)
[2024-11-20] MEDS ORDERED: BUPIvacaine/PF 0.25% 30ML VIAL IJ ONE (13:06)
[2024-11-20] MEDS ORDERED: IOHEXOL-350 50ML VIAL IV ONE (13:20)
[2024-11-20] MEDS ORDERED: MIDAZOLAM HCL 1 MG/ML 2ML VIAL ONE ×2 (13:21→13:48)
[2024-11-20] MEDS ORDERED: FENTanyl CITRate PF 50 MCG/1 ML 2ML VIAL ONE (13:21)
[2024-11-20] MEDS ORDERED: metoPROLOL tartRATE 1 MG/ML 5ML VIAL IV ONE (14:06)
[2024-11-20] MEDS ORDERED: acetaMINOPHEN WITH coDEINE 1 TAB TAB PO PRN ×2 (14:30)
[2024-11-20] MEDS ORDERED: DEXTROSE 50%-WATER 50 ML DISP.SYRIN IV PRN (14:30)
[2024-11-20] MEDS ORDERED: INSULIN humuLIN R 100 UNIT/ML 3ML SQ SCH (16:30)
--- NOTE | 2024-11-20 17:11 | HMCIMG ---
CHEST 1VW HISTORY: Postpacemaker COMPARISON: 04/20/2024 FINDINGS: A frontal projection of the chest was obtained. There are bilateral pulmonary infiltrates suggestive of pulmonary vascular congestion with possible superimposed pneumonitis. The heart is borderline enlarged. Pacemaker is seen entering from the left. No evidence of aortic calcification is seen. IMPRESSION: 1. Bilateral pulmonary infiltrates are seen suggestive of pulmonary vascular congestion with possible superimposed pneumonitis.
[2024-11-20] MEDS: ceFAZolin SODIUM 1 GM VIAL IVPB ONE (17:38)
== END 2024-11-20 18:45 | disposition home or self-care (01) ==
LOC: DAH 08:11
PROVIDERS: ATTEND Internal Medicine Cardiovascular Disease
DX: I48.19 Other persistent atrial fibrillation (principal); I49.5 Sick sinus syndrome; I11.0 Hypertensive heart disease with heart failure; I50.32 Chronic diastolic (congestive) heart failure; I48.91 Unspecified atrial fibrillation; I25.10 Atherosclerotic heart disease of native coronary artery without angina pectoris; I73.9 Peripheral vascular disease, unspecified; E11.9 Type 2 diabetes mellitus without complications; F32.A Depression, unspecified; E11.42 Type 2 diabetes mellitus with diabetic polyneuropathy; Z79.899 Other long term (current) drug therapy; Z86.2 Personal history of diseases of the blood and blood-forming organs and certain disorders involving the immune mechanism; Z95.5 Presence of coronary angioplasty implant and graft; Z87.898 Personal history of other specified conditions; Z90.49 Acquired absence of other specified parts of digestive tract; Z90.89 Acquired absence of other organs; Z98.890 Other specified postprocedural states
CPT/HCPCS: 33207; 99156; 99157 ×3; 93005; 80048; 85025; 85610; 85730; 36415; 71045; C1786; C1898; C1894; J3010; J0690 ×2; J3490 ×2; J0665; J2250 ×2; A4615; A4215; A4222; A4221; A4663; A4216; A4606; A4520; A4223 ×3; A4554; A4335; Q9967